=== PATIENT | male | born 1965 | race Caucasian/White ===

== ENCOUNTER 2020-12-30 21:42 | Inpatient (IN) | payer OTHER, MEDICARE, SELFPAY ==
[2020-12-30 22:01] VITALS: BP 145/63; PULSE 99; RESP 18; TEMP 38.2; O2SAT 90; BMI 29.7
--- NOTE | 2020-12-30 22:47 | XRR_ITS ---
PROCEDURE INFORMATION: Exam: XR Chest Exam date and time: 12/30/2020 10:47 PM Age: 55 years old Clinical indication: Shortness of breath and other: Weakness; Additional info: SOB TECHNIQUE: Imaging protocol: XR of the chest. Views: 1 view. COMPARISON: No relevant prior studies available. FINDINGS: Lungs: Patchy infiltrates in both lower lobes. The upper lobes are clear. Pleural spaces: Unremarkable. No pleural effusion. No pneumothorax. Heart/Mediastinum: Unremarkable. No cardiomegaly. Bones/joints: Unremarkable. XR/XR chest 1V portable [id number] IMPRESSION: Bibasilar infiltrates suggesting pneumonia
--- NOTE | 2020-12-30 22:59 | ED_ITS ---
HPI - COVID General: Chief Complaint: COVID symptoms Stated Complaint: COVID+ ON MONDAY LOW O2 Time Seen by Provider: 12/30/20 22:57 Triage information: Has fever, cough or shortness of breath . History of Present Illness: HPI Narrative: Patient brought in by family member for concerns of lethargy and low oxygen level. Patient's family reports that he had a pulse ox from 84% at home. Patient on oxygen runs 90 to 92% at 3 L. P atient remains lethargic. Patient has a history of diabetes mellitus, degenerative disc disease, hypertension, chronic opiate use, and hypertriglyceridemia. Patient tested positive for COVID-19 on Monday at [facility] urgent care in [place]. complaint: known COVID positive Prior covid testing: yes, results known ([facility] on Sunday December 27, 2020.) COVID 19 other sytmptoms: positive requiring oxygen and lethargy Pertinent comorbid conditions: diabetes, hypertension and obesity Treatment prior to arrival: none COVID Results: No Data to Display Review of Systems General: Reports: 10 or more systems reviewed and unremarkable except in HPI and below Neuro: Reports: other (Lethargy) Physical Exam Const: COMMON NORMALS: no acute distress and patient oriented x3 GENERAL APPEARANCE: cooperative HENMT: COMMON NORMALS: normocephalic, TM's normal bilaterally and Normal external nose present HEAD & SCALP: normal to inspection and normocephalic NOSE: Normal external nose present TYMPANIC MEMBRANE: TM's normal bilaterally MOUTH: Normal oral and palatal mucosa present THROAT: posterior oropharynx normal Eye: GENERAL EYE: appearance normal, both eyes and all related structures Neck/C-Spine: COMMON NORMALS: full ROM Lymph: LYMPHATIC: no lymphadenopathy noted Chest: COMMONS NORMALS: normal inspection of the chest Resp: COMMON NORMALS: normal respiratory effort EFFORT & INSPECTION: Yes able to speak in complete sentences AUSCULTATION: crackles Laterality: bilateral and posterior Cardio: COMMON NORMALS: regular rate and regular rhythm RATE: regular rate RHYTHM: regular rhythm GI: COMMON NORMALS: non-tender Back/Pelvis: COMMON NORMALS: thoracic and lumbar spine normal to inspection Extremity: COMMON NORMALS: normal to inspection Neuro: COMMON NORMALS: patient oriented x3 and moves all extremities Psych: COMMON NORMALS: mental status grossly normal and cooperative Skin: COMMON NORMALS: no rashes or lesions noted GENERAL SKIN EXAM: no rashes or lesions noted Course ED course: , discussed with Dr. Marquis patient's elevated creatinine at 6.1, and potassium at 6. Patient is in acute kidney injury, may be due to patient's history of CKD and diabetes secondary to dehydration from fever and COVID-19. 20, patient was mildly hypotensive after infusion of 1000 L patient's blood pressure came up to 110 systolic. We will continue to monitor patient. He seems more alert after the 1 L of fluid. , talk with Dr. Mosley, hospitalist she agreed to admission for SOL and COVID-19 pneumonia. Vital Signs: Vital signs: Vital Signs Temperature 100.7 F H 12/30/20 22:01 Pulse Rate 86 12/31/20 00:52 Respiratory Rate 18 12/31/20 00:52 Blood Pressure 88/50 12/31/20 00:52 Pulse Oximetry 97 12/31/20 00:52 MDM - COVID MDM Narrative: Medical decision making narrative: Patient comes in today for complaints of lethargy and hypoxia at home. It was reported patient had a 84% home oxygen saturation level. Spouse brought into the ER after she got off work due to his declining condition. Patient had been admitted diagnosed with COVID-19 on Monday at [facility] urgent care in [place]. On exam patient has crackles in bilateral lower lung hsieh. Patient at this time on oxygen runs 92 to 94%. Patient skin is warm and dry. Abdomen soft nontender. Differential diagnosis includes COVID-19 pneumonia, hypoxia, respiratory failure. Laboratory values CBC was unremarkable, CMP noted SOL with a creatinine of 6.1 and a potassium of 6. Glucose was 232. I reviewed this with Dr. Marquis who gave the patient some D50 and some insulin and patient was infused 2 L of IV fluids. Patient systolic blood pressure gotten 90 but recovered well after 2 L of IV fluids. I reviewed with Dr. Mosley who agreed to admission. Patient needs treatment for acute kidney injury and Covid pneumonia. He needs IV fluids, oxygen therapy, and antiviral treatment. Lab Data: Labs: Lab Results 12/30/20 12/30/20 12/30/20 Range/Units 23:30 23:30 23:30 WBC 7.9 (4.0-10.0) 10^3/ uL RBC 5.21 (4.1-5.3) 10^6/u L Hgb 13.5 (11.7-16.6) g/dL Hct 43.5 (42.0-52.0) % MCV 83.5 (80-94) fL MCH 25.9 L (28.0-34.0) pg MCHC 31.0 (30.0-36.0) g/dL RDW 13.5 (12.1-15.1) % Plt Count 165 (130-400) 10^3/c mm MPV 11.7 H (7.4-10.4) fL Neut % (Auto) 78.7 % Lymph % (Auto) 11.7 % [place] % (Auto) 9.0 % Eos % (Auto) 0.0 % Baso % (Auto) 0.3 % Neut # (Auto) 6.19 (1.8-7.7) 10^3/u L Lymph # (Auto) 0.9 (0.8-4.8) 10^3/u L [place] # (Auto) 0.7 (0.2-0.9) 10^3/u L Eos # (Auto) 0.0 (0.0-0.8) 10^3/u L Baso # (Auto) 0.0 (0.0-0.1) 10^3/u L Nucleated RBC % (a uto) 0 % Nucleated RBCs # 0.0 /100WBC PT (12.1-14.9) SECO NDS INR (0.8-1.2) APTT (23.9-36.7) SECO NDS Fibrinogen (174-498) mg/dL D-Dimer (0-0.59) ug/mIFE U Specimen Type Sample Site ABG pH (7.35-7.45) ABG pCO2 (35-45) mmHg ABG pO2 (80.0-100.0) mmH g ABG HCO3 (22-26) mmol/L ABG Base Excess (-2.0-2.0) mmol/ L Subhash Test Hematocrit (42-52) % O2 Delivery Device O2 Liters/Min % FiO2 % Chimney Mechanic ID Sodium 130 L (136-145) mmol/L Potassium 6.0 H (3.5-5.1) mmol/L Chloride 92 L (98-107) mmol/L Carbon Dioxide 18 L (22-29) mmol/L Anion Gap 26.0 H (5-19) BUN 52 H (6-20) mg/dL Creatinine 6.1 H* (0.7-1.2) mg/dL GFR Calculation 9.7 L (90-130) mL/min Glucose 232 H (65-115) mg/dL Calculated Osmolal ity 291 (285-295) mOsm/k g Lactic Acid (0.5-2.2) mmol/L Calcium 7.8 L (8.5-10.5) mg/dL Ferritin 243 (30-400) ng/mL Total Bilirubin 0.2 (0.15-1.2) mg/dL AST 21 (0-40) U/L ALT 28 (0-41) U/L Alkaline Phosphata se 75 (40-130) IU/L Creatine Kinase 121 (39-308) U/L Troponin T Gen 5 n g/L 54 H (0-15) ng/L C-Reactive Protein 11.4 H (0.0-4.9) mg/L NT-Pro-B Natriuret Pep 22 (0-125) pg/mL Total Protein 6.5 L (6.6-8.7) g/dL Albumin 4.1 (3.5-5.2) g/dL Globulin 2.4 (1.3-4.6) g/dL Procalcitonin 0.95 H (0-0.5) ng/mL 12/30/20 12/30/20 12/30/20 Range/Units 23:30 23:30 23:51 WBC (4.0-10.0) 10^3/ uL RBC (4.1-5.3) 10^6/u L Hgb (11.7-16.6) g/dL Hct (42.0-52.0) % MCV (80-94) fL MCH (28.0-34.0) pg MCHC (30.0-36.0) g/dL RDW (12.1-15.1) % Plt Count (130-400) 10^3/c mm MPV (7.4-10.4) fL Neut % (Auto) % Lymph % (Auto) % [place] % (Auto) % Eos % (Auto) % Baso % (Auto) % Neut # (Auto) (1.8-7.7) 10^3/u L Lymph # (Auto) (0.8-4.8) 10^3/u L [place] # (Auto) (0.2-0.9) 10^3/u L Eos # (Auto) (0.0-0.8) 10^3/u L Baso # (Auto) (0.0-0.1) 10^3/u L Nucleated RBC % (a uto) % Nucleated RBCs # /100WBC PT 13.60 (12.1-14.9) SECO NDS INR 1.01 (0.8-1.2) APTT 24.6 (23.9-36.7) SECO NDS Fibrinogen 400 (174-498) mg/dL D-Dimer 0.77 H (0-0.59) ug/mIFE U Specimen Type Arterial Sample Site Radial, left ABG pH 7.37 (7.35-7.45) ABG pCO2 30.6 L (35-45) mmHg ABG pO2 59.8 L (80.0-100.0) mmH g ABG HCO3 17.6 L (22-26) mmol/L ABG Base Excess -6.5 L (-2.0-2.0) mmol/ L Subhash Test Pos Hematocrit 41.3 L (42-52) % O2 Delivery Device Nc O2 Liters/Min 3.0 % FiO2 32.0 % Chimney Mechanic ID glc Sodium (136-145) mmol/L Potassium (3.5-5.1) mmol/L Chloride (98-107) mmol/L Carbon Dioxide (22-29) mmol/L Anion Gap (5-19) BUN (6-20) mg/dL Creatinine (0.7-1.2) mg/dL GFR Calculation (90-130) mL/min Glucose (65-115) mg/dL Calculated Osmolal ity (285-295) mOsm/k g Lactic Acid 1.6 (0.5-2.2) mmol/L Calcium (8.5-10.5) mg/dL Ferritin (30-400) ng/mL Total Bilirubin (0.15-1.2) mg/dL AST (0-40) U/L ALT (0-41) U/L Alkaline Phosphata se (40-130) IU/L Creatine Kinase (39-308) U/L Troponin T Gen 5 n g/L (0-15) ng/L C-Reactive Protein (0.0-4.9) mg/L NT-Pro-B Natriuret Pep (0-125) pg/mL Total Protein (6.6-8.7) g/dL Albumin (3.5-5.2) g/dL Globulin (1.3-4.6) g/dL Procalcitonin (0-0.5) ng/mL COVID Results: No Data to Display Discharge Plan Discharge Patient Disposition: Admitted As Inpatient Clinical Impression: SOL (acute kidney injury), Pneumonia due to COVID-19 virus Condition: Stable Coding Level of Care Code 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
[2020-12-30 23:41] LABS: Basophils % 0.3 %; Hematocrit 43.5 % (42.0-52.0); Hemoglobin 13.5 g/dL (11.7-16.6); Lymphocytes # 0.9 10^3/uL (0.8-4.8); Lymphocytes % 11.7 %; Mean Corpuscular Hemoglobin 25.9 pg (28.0-34.0); Mean Corpuscular Volume 83.5 fL (80-94); Mean Platelet Volume 11.7 fL (7.4-10.4); Monocytes # 0.7 10^3/uL (0.2-0.9); Neutrophils # 6.19 10^3/uL (1.8-7.7); Neutrophils % 78.7 %; Nucleated Red Blood Cells % 0 %; Platelet Count 165 10^3/cmm (130-400); Red Blood Count 5.21 10^6/uL (4.1-5.3); Red Cell Distribution Width 13.5 % (12.1-15.1); White Blood Count 7.9 10^3/uL (4.0-10.0)
[2020-12-30] MEDS: sodium chloride 0.9% 1,000 ML 999 ML IV (23:57)
[2020-12-30 23:58] LABS: Lactic Sepsis W/Reflex 1.6 mmol/L (0.5-2.2)
[2020-12-30 23:59] VITALS: BP 93/46; PULSE 85; RESP 18; O2SAT 94
[2020-12-30 23:59] LABS: INR 1.01 (0.8-1.2); Troponin T (5th) Once 54 ng/L (0-15)
[2020-12-31] VITALS (40 sets, daily range): BP systolic 82–148; BP diastolic 50–91; PULSE 80–94; RESP 12–26; TEMP 36.8–37.2; O2SAT 92–98
[2020-12-31] LABS: Partial Thromboplastin Time 24.6 SECONDS (23.9-36.7)
[2020-12-31 00:01] LABS: Fibrinogen 400 mg/dL (174-498)
[2020-12-31 00:03] LABS: ABG PCO2 30.6 mmHg (35-45); ABG PH Result 7.37 (7.35-7.45); Arterial Blood Gas Hematocrit 41.3 % (42-52); Base Excess ABG -6.5 mmol/L (-2.0-2.0); Blood Gas Allen Test Pos; Blood Gas Operator Identificat glc; Blood Gas Sample Site Radial, left; Blood Gas Sample Type Arterial; HCO3 ABG 17.6 mmol/L (22-26); Oxygen Device NC; PO2 ABG 59.8 mmHg (80.0-100.0)
[2020-12-31 00:06] LABS: D Dimer 0.77 ug/mIFEU (0-0.59)
[2020-12-31 00:09] LABS: NT Pro B Type Natriuretic Pept 22 pg/mL (0-125); Procalcitonin 0.95 ng/mL (0-0.5)
[2020-12-31 00:21] LABS: Alanine Aminotransferase 28 U/L (0-41); Albumin Level 4.1 g/dL (3.5-5.2); Alkaline Phosphatase 75 IU/L (40-130); Aspartate Amino Transferase 21 U/L (0-40); Blood Urea Nitrogen 52 mg/dL (6-20); C Reactive Protein 11.4 mg/L (0.0-4.9); Calcium 7.8 mg/dL (8.5-10.5); Carbon Dioxide 18 mmol/L (22-29); Chloride 92 mmol/L (98-107); Creatine Phosphokinase 121 U/L (39-308); Ferritin 243 ng/mL (30-400); Globulin 2.4 g/dL (1.3-4.6); Glomerular Filtration Rate 9.7 mL/min (90-130); Glucose 232 mg/dL (65-115); Osmolality Calculated 291 mOsm/kg (285-295); Sodium 130 mmol/L (136-145); Total Bilirubin 0.2 mg/dL (0.15-1.2); Total Protein 6.5 g/dL (6.6-8.7)
[2020-12-31] MEDS: dextrose 50% syringe 50 mL IVP (00:46)
[2020-12-31] MEDS: insulin regular-human 100 units/1 mL 10 UNIT IVP (00:48)
[2020-12-31] MEDS: sodium chloride 0.9% 1,000 ML 999 ML IV (01:13)
--- NOTE | 2020-12-31 02:12 | P.HP_ITS ---
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 Patient was on anticoagulation with Xarelto until June of this year, discontinued it as he could not afford the co-pay. Thereafter reportedly was told by his vascular surgeon he could be on baby aspirin alone. He was diagnosed with COVID-19 on Monday shortly after his and son came out of COVID-19 quarantine. He was tested at an urgent care and [place]. Symptoms at the time were fever chills and rigors. He also had cough. Denies shortness of breath. Today when his returned from work she noted that he had more tremors than usual in bilateral upper extremities, appeared to be more lethargic, oxygen saturation was down to 84% at room air and therefore she was brought into the emergency room. Work-up here is notable for acute kidney injury with creatinine up to 6.5, hyperkalemia with potassium at 6.0. Lewis was placed and he has had no urine output so far. He is unable to tell me if urine output had been reducing at home. No recent blood in urine. Systolic blood pressure upon admission was 80 systolic, improved with 2 L IV fluids to 110/65 at the time of my assessment. He is currently saturating 92% on 3 L/min nasal cannula. Chest x-ray shows bilateral infiltrates consistent with COVID-19 pneumonitis. Patient received his first dose of COVID-19 vaccine 1 day prior to testing positive for Covid. He denies any current chest pain or palpitations. No known cardiac history. States blood pressure has been controlled at home. He usually takes lisinopril. Does not know his last baseline creatinine. Denies any GI losses by way of vomiting or diarrhea. At this present time patient states his chief complaint is the tremors and also pain in his bilateral lower extremities. He does have peripheral neuropathy and takes gabapentin for the same. Recent history is notable for what appears to be critical limb ischemia per his history, underwent vascular intervention in August 2020 at [facility]. All of the above records have been requested. Review of Systems General: Reports: 10 or more systems reviewed and unremarkable except in HPI and below Const: Reports: fever(s), chills and body aches Eyes: Denies: change in vision, blurry vision or photophobia ENMT: Denies: throat pain, enlarged tonsils, odynophagia or nasal congestion Card: Reports: dyspnea on exertion; Denies: chest pain, palpitations, irregular heart rhythm, edema, swelling of feet/ankles, lightheadedness, pre-syncope or orthopnea Resp: Reports: non-productive cough; Denies: dyspnea, productive cough, wheezing, stridor, pain on inspiration, change in phlegm color, hemoptysis or chest congestion GI: Denies: abdominal pain, nausea, vomiting, hematemesis, coffee ground emesis, dysphagia, heartburn, diarrhea, constipation, GI cramping, change in stool character, hematochezia or melena : Denies: flank pain, dysuria, urinary frequency, urinary urgency, urinary hesitancy or hematuria Musc: Denies: neck pain, back pain, extremity pain, joint swelling, joint warmth or deformity Neuro: Reports: weakness in extremities; Denies: headache(s), numbness in extremities, sensory changes, difficulty walking, frequent falls, dizziness, vertigo, behavioral changes, Slurred speech present or seizure-like activity Psych: Denies: anxiety, depression, suicidal ideation or homicidal ideation Endo: Denies: polyuria, polydipsia, tired all the time, cold intolerance or hot flashes Freedom/Lymph: Denies: easy bruising or easy bleeding Medications/Allergies Allergies Allergy/AdvReac Type Severity Reaction Status Date / Time niacin Allergy Unknown Verified 12/30/20 22:05 Zmlcgjb-Lio-Pus Reductase Allergy Unknown Verified 12/30/20 22:05 Inhibitor PFSH Acute PFSH: Medical History (Updated 12/31/20 @ 04:38 by Laura Mosley MD) Hyperlipidemia Hypertension Peripheral artery disease Renal arterial thrombosis Surgical History (Updated 12/31/20 @ 04:28 by Laura Mosley MD) S/P peripheral artery angioplasty with stent placement Vitals/I&O/Wt Last Vital Signs Temp 100.7 F H 12/30/20 22:01 Pulse 86 07/15/21 00:52 Resp 18 12/31/20 00:52 BP 88/50 12/31/20 00:52 Pulse Ox 97 12/31/20 00:52 Weight last 48 hrs Weight 88.904 kg Physical Exam Narrative: EXAM NARRATIVE: General: Awake alert, awake, alert, oriented x3, initially appeared to be quite somnolent, however continued to participate in conversation. An hour after the initial exam, he was noted to be much more active, using his cell phone without discomfort HEENT: PERRLA, pupils bilaterally equal and reactive, pallors not present Chest: Normal vesicular breath sounds, no added sounds, equal good air entry bilaterally CVS: S1-S2 regular, no murmurs, no tachycardia, no gallops, no rubs Abdomen: Soft, nontender, no organomegaly, bowel sounds present Neuro: No focal deficits, no facial deformity, AO x3, power 5/5 in all limbs Extremities: Left lower extremity peripheral pulses palpable up to dorsalis pedis. No gross difference in temperature both extremities. Multiple superficial scratches seen over lower extremities. Data : 12/30/20 23:30 12/31/20 02:24 A&P Assessment and plan (1) Pneumonia due to COVID-19 virus: Chest x-ray with bilateral infiltrates consistent with COVID-19 pneumonia Start dexamethasone IV every 24 hours Per review of NIH guidelines, Remdesivir is not recommended for patients with an eGFR <30 mL/min due to lack of data, therefore holding off for now. 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 He was supposed to be on Xarelto thereafter which she discontinued in June due to affordability issues. Unable to get a contrast CT scan at this time, ordered renal arterial Doppler to evaluate for thrombosis. Start heparin drip presumptively in the interim, may be discontinued if no evidence of thrombosis noted. D-dimer is mildly elevated at 0.77. Continue aspirin 81 mg p.o. daily Concerning findings at this present time or hyperkalemia and tremors which may potentially be a result of uremia. Also with some acidosis. Renal consult in the a.m. Status: Acute (3) Insulin dependent diabetes mellitus: At home takes Lantus 35 units and sliding scale insulin. Hold Lantus for now given SOL. Continue medium dose sliding scale insulin. Status: Acute (4) Hypertension: hold home dose of lisinopril Presented with hypotension, received 2 L IV fluid, blood pressure currently stable at 110/65 Status: Acute Qualifiers: Hypertension type: essential hypertension Qualified Code(s): I10 - Essential (primary) hypertension (5) Peripheral artery disease: History of peripheral artery disease, per his description it appears he may have had critical limb ischemia in August of this year and underwent peripheral intervention at [facility]. Records requested Complains of bilateral lower extremity pain which may be related to his known peripheral neuropathy, however states that pain feels similar to his critical limb ischemia. I am able to feel pulses up to the dorsalis pedis on the left side only at this time. Check lower extremity arterial Doppler. He is uncertain if he is ever had a hypercoagulability work-up. Status: Acute (6) Hyperlipidemia: Takes ezetimibe at home, continue same for now. Status: Acute Qualifiers: Hyperlipidemia type: unspecified Qualified Code(s): E78.5 - Hyperlipidemia, unspecified (7) Hyperkalemia: Improved to 5.0 from 6.0 after being given insulin dextrose No acute ST-T changes on EKG at this time. Status: Acute Additional A&P Information Elevated troponins, trend at 2 and 6-hour. Denies any current chest pain. DVT prophylaxis: Currently on heparin drip Full code. 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
[2020-12-31 02:51] LABS: Blood Urea Nitrogen 52 mg/dL (6-20); Carbon Dioxide 16 mmol/L (22-29); Chloride 99 mmol/L (98-107); Glucose 252 mg/dL (65-115); Osmolality Calculated 293 mOsm/kg (285-295); Sodium 130 mmol/L (136-145)
[2020-12-31 02:51] LABS: C Reactive Protein 12.4 mg/L (0.0-4.9); Lactate Dehydrogenase 166 U/L (135-225)
[2020-12-31 03:05] LABS: Troponin T (5th) Once 42 ng/L (0-15)
[2020-12-31 03:11] LABS: Ferritin 196 ng/mL (30-400)
[2020-12-31] MEDS: dexamethasone 4 mg/mL INJ 6 MG IVP (03:18)
[2020-12-31] MEDS: cefTRIAXone 1,000 MG in sodium chloride 0.9% (plus) 100 ML 200 MG IV (03:24)
[2020-12-31] MEDS: enoxaparin 40 mg/0.4 mL Syringe SUBCUT (03:25)
[2020-12-31 03:31] LABS: D Dimer 0.51 ug/mIFEU (0-0.59)
[2020-12-31] MEDS: sodium chloride 0.9% 1,000 ML 100 ML IV ×3 (03:48→21:48)
--- NOTE | 2020-12-31 04:15 | CTR_ITS ---
PROCEDURE INFORMATION: Exam: CT Abdomen And Pelvis Without Contrast Exam date and time: 12/31/2020 4:15 AM Age: 55 years old Clinical indication: Abdominal tenderness; Additional info: Rd CR 6, evaluate for obstruction, h/o ? renal artery thrombosis one year ago, unable to use^contrast currently TECHNIQUE: Imaging protocol: Computed tomography of the abdomen and pelvis without contrast. Radiation optimization: All CT scans at this facility use at least one of these dose optimization techniques: automated exposure control; mA and/or kV adjustment per patient size (includes targeted exams where dose is matched to clinical indication); or iterative reconstruction. COMPARISON: US abdomen limited [id number] 06/16/2016 10:43 AM RADIATION DOSE METRICS: Total DLP (mGy-cm): 1601.75 FINDINGS: Lungs: Bibasilar mild pulmonary subsegmental atelectasis is present. Peripheral rounded pulmonary ground-glass opacities with intralobular interstitial densities. Liver: Mild diffuse hypoattenuation of the liver is present consistent with hepatic steatosis. Gallbladder and bile ducts: The gallbladder is partially contracted. Pancreas: Moderate pancreatic atrophy. Spleen: Normal. No splenomegaly. Adrenal glands: Normal. No mass. Kidneys and ureters: Symmetric, normal bilateral renal size despite the clinical history. Stomach and bowel: There is mildly increased fluid noted in the ascending and proximal transverse colon. Appendix: The vermiform appendix is normal. Intraperitoneal space: No free air. No significant fluid collection. Vasculature: Infrarenal abdominal aortic stent, no aneurysm. Calcified phleboliths are present in the lower pelvis bilaterally. The right iliac arteries show mild atherosclerotic calcifications without evidence of aneurysm. Atherosclerotic calcifications are present involving the RCA coronary artery. Lymph nodes: No enlarged lymph nodes. Urinary bladder: The urinary bladder is drained by a Lewis catheter. The urinary bladder is decompressed and difficult to assess. Moderate urinary bladder wall thickening. Reproductive: Unremarkable as visualized. Bones/joints: Unremarkable. No acute fracture. Soft tissues: Right inguinal surgical clips. CT/CT kidney stone [id number] IMPRESSION: 1. Increased right abdominal colonic fluid consistent with any diarrheal illness, if present. Clinical correlation is recommended. 2. Moderate urinary bladder wall thickening. Cystitis not excluded. Clinical correlation with urinalysis is recommended. 3. Fatty infiltration of the liver. 4. Peripheral rounded pulmonary ground-glass opacities with intralobular interstitial densities. Pneumonitis, including viral pneumonitis, is difficult to exclude. Clinical correlation is recommended. 5. Coronary atherosclerosis. Radiation Dose CTDIVOL = (mGy): DLP = 1601.75 (mGy-cm)
[2020-12-31 04:20] LABS: Amorphous Sediment Urine 2+ /hpf; Bacteria Urine TRACE /hpf; Bilirubin Urine 1+ (Negative); Blood Urine Neg (Negative); Glucose Urine UA Norm (Normal); Ketones Urine Negative (Negative); Leukocyte Esterase Urine Negative (Negative); Nitrate Urine Negative (Negative); Protein Urine Trace (Negative); RBC Urine 0-4 /hpf (0-2); Squamous Epithelial Cell Urine 0-4 /hpf (0-5); Urine Appearance Clear (CLEAR); Urine Color Yellow (Yellow); Urobilinogen Urine Norm (Negative); WBC Urine 0-4 /hpf (0-5); pH Urine 5 (5-7)
[2020-12-31 04:21] LABS: Hyaline Casts Urine 0-4 /lpf
[2020-12-31 04:23] LABS: Potassium, Radom Urine 32 mmol/L; Urine Creatinine 376 mg/dL (39-259); Urine Random Sodium 21 mmol/L
[2020-12-31 04:24] LABS: Urine Random Chloride 16 mmol/L
[2020-12-31] MEDS: heparin 5,000 unit/mL INJ 1 mL IV (04:50)
[2020-12-31] MEDS: heparin drip 25,000 UNIT/500 ML PREMIX 25 UNIT IV (04:50)
--- NOTE | 2020-12-31 04:53 | PC.NURSE ---
Addendum entered by Maryjane Eugene RN 12/31/20 04:58: Discard. Entered in error. Original Note: Attempt to contact Dr. Mosley to clarify NS rate on orders. Awaiting response.
[2020-12-31 05:12] LABS: HIV 1 & 2 Antibody Non-Reactive (Non-Reactiv); HIV 1 & 2 Antigen Non-Reactive (Non-Reactiv)
[2020-12-31 05:29] LABS: Hepatitis A Antibody IgM Non-Reactive (Nonreactive); Hepatitis B Core AB, Total Non-Reactive (Nonreactive); Hepatitis B Surface AB 3.5 (11.5-1000); Hepatitis B Surface Antigen Non-Reactive (Nonreactive); Hepatitis C Virus Antibody Non-Reactive (Nonreactive)
[2020-12-31 07:27] LABS: Glucose Point of Care 231 mg/dL (70-110)
[2020-12-31] MEDS: ezetimibe 10 mg Tablet PO (08:09)
[2020-12-31] MEDS: benzonatate 100 mg Capsule PO ×3 (08:11→21:47)
[2020-12-31] MEDS: famotidine 20 mg Tablet PO ×2 (08:11→17:35)
[2020-12-31] MEDS: aspirin 81 mg EC Tablet PO (08:11)
[2020-12-31] MEDS: albuterol 8 gm MDI 2 PUFF INHALATION ×5 (09:41→23:12)
--- NOTE | 2020-12-31 09:52 | PM.CONSULT ---
Providers/Reason For Consult Consulting Physician/Specialty*: Samantha Lee DO, telenephrology Reason for Consult*: Acute kidney injury Attending Physician: Mahamed Ruiz MD Primary Care Provider: TARA Feliz History of Present Illness History of Present Illness Navneet Meneses is a 55 year old male started to feel ill over weekend. Reports balance difficulty, extreme weakness, diffuse aches and pains. Admitted with COVID associated pneumonia. We do not have a current medication list and he was unable to provide one. RN is calling [place] for list. Presently feeling a little better. Review of Systems Resp: Reports: non-productive cough Musc: Reports: muscle cramps and muscle weakness Skin/Breast: Denies: rash Meds/Allergies Home Medications and Allergies Allergies Allergy/AdvReac Type Severity Reaction Status Date / Time niacin Allergy Unknown Verified 12/30/20 22:05 Ystpuzb-Mbb-Drp Reductase Allergy Unknown Verified 12/30/20 22:05 Inhibitor Current Medications Current Medications Generic Name Dose Route Start Last Admin Trade Name Freq PRN Reason Stop Dose Admin Albuterol Sulfate 2 puff 12/31/20 08:00 12/31/20 09:41 Albuterol 8 Gm Mdi INHALATION 2 puff Q4H.RESPIRATORY DAYSI Administration Aspirin 81 mg 12/31/20 09:00 12/31/20 08:11 Aspirin 81 Mg Ec Tablet PO 81 mg DAILY DAYSI Administration Benzonatate 100 mg 12/31/20 09:00 12/31/20 08:11 Benzonatate 100 Mg Capsule PO 100 mg TID DAYSI Administration Dexamethasone 6 mg 12/31/20 02:15 12/31/20 03:18 Dexamethasone 4 Mg/Ml Inj IVP 6 mg Q24H DAYSI Administration Ezetimibe 10 mg 12/31/20 09:00 12/31/20 08:09 Ezetimibe 10 Mg Tablet PO 10 mg DAILY DAYSI Administration Enoxaparin Sodium 40 mg 12/31/20 02:15 12/31/20 03:25 Enoxaparin 40 Mg/0.4 Ml Syringe SUBCUT 40 mg Q24H DAYSI Administration Famotidine 20 mg 12/31/20 09:00 12/31/20 08:11 Famotidine 20 Mg Tablet PO 20 mg BID DAYSI Administration Heparin Sodium (Beef Lung) 0 unit 12/31/20 04:15 12/31/20 04:50 Heparin 5,000 Unit/Ml Inj 1 Ml IV 4,500 unit PRN PRN Administration Heparin weight-base protocol Protocol Sodium Chloride 1,000 mls @ 100 mls/hr 12/31/20 02:00 12/31/20 03:48 Sodium Chloride 0.9% IV 100 mls/hr .Q10H DAYSI Administration Ceftriaxone Sodium 1,000 mg/ 100 mls @ 200 mls/hr 12/31/20 02:15 12/31/20 03:24 Sodium Chloride IV 200 mls/hr Q24H DAYSI Administration Protocol Heparin Sodium/Sodium Chloride 25,000 unit in 500 mls @ 0 mls/hr 12/31/20 04:15 12/31/20 04:50 Heparin Drip IV 14.06 unit/kg/hr .Q0M DAYSI 25 mls/hr Administration Protocol Per Protocol Insulin Aspart 0 unit 12/31/20 08:00 12/31/20 08:08 Insulin Aspart 100 Unit/1 Ml SUBCUT 8 unit WM&BEDTIME DAYSI Administration Protocol Fluticasone/Salmeterol 1 puff 12/31/20 08:00 12/31/20 09:41 Fluticasone-Salmeterol 250-50 Diskus INHALATION 1 puff BID.RESPIRATORY DAYSI Administration Tiotropium Astor 18 mcg 12/31/20 08:00 12/31/20 09:42 Tiotropium 18 Mcg Mdi INHALATION 1 puff DAILY.RESPIRATORY DAYSI Administration PFSH Acute PFSH: Medical History Hyperlipidemia Hypertension Peripheral artery disease Renal arterial thrombosis Surgical History S/P peripheral artery angioplasty with stent placement Vitals/I&O/Wt Last Vital Signs Temp 98.2 F 12/31/20 08:00 Pulse 89 12/31/20 09:39 Resp 18 12/31/20 09:30 BP 120/69 12/31/20 08:00 Pulse Ox 97 12/31/20 09:30 12/30/20 12/31/20 12/31/20 22:59 06:59 14:59 Intake Total 60 / 60 360 / 360 Balance 60 / 60 360 / 360 Weight last 48 hrs Weight 88.904 kg Physical Exam Const: COMMON NORMALS: no acute distress GENERAL APPEARANCE: cooperative Extremity: COMMON NORMALS: no pedal edema Urinary Catheter Management^: Lewis: Cath Placed During This Visit: yes Reason for Continuing Indwelling Catheter: Other Urinary Catheter Date of Insertion: 12/31/20 Data Labs: Other Labs: urine Na 21, urine Cr 376 Urinalysis normal except 1+ bilirubin Hep/HIV neg LFT normal, albumin 4.1, calcium 7 CK 121 Repeat BMP: K 5.4, BS 418, Na delphine 131 Micro: Micro: Microbiology 12/31/20 02:26 Blood Culture - Pr eliminary Blood [facility]EN [facility] 12/31/20 02:24 Blood Culture - Pr eliminary Blood SPECIMEN [facility] Imaging^: CT Abd/Pel: Radiologist's impression: 1. Increased right abdominal colonic fluid consistent with any diarrheal illness, if present. Clinical correlation is recommended. 2. Moderate urinary bladder wall thickening. Cystitis not excluded. Clinical correlation with urinalysis is recommended. 3. Fatty infiltration of the liver. 4. Peripheral rounded pulmonary ground-glass opacities with intralobular interstitial densities. Pneumonitis, including viral pneumonitis, is difficult to exclude. Clinical correlation is recommended. 5. Coronary atherosclerosis. ABG^: ABG Interpretation 1: 7.37/30.6/59.8 My Interpretation: primary metabolic acidosis A&P Additional A&P Information 1. Acute oliguric kidney injury, FeNa < 1%, consistent with prerenal state. 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 Records requested from [facility]. Continue IVF hydration. 2. COVID pneumonia. Case reports document remdesivir benefit outweighs risk in patients with low eGFR and severe COVID 3. Hyponatremia 4. Metabolic acidosis 5. Hyperkalemia, improved. Now hyperglycemic. Plan to start insulin gtt. Consult Attestations Medical Necessity Statement: critically ill Time Spent in Patient Care: Greater than 35 minutes Coding Level of Care Code Acute Insulation Batting Machine Operator for Maribel Bruner
[2020-12-31 11:03] LABS: Glucose Point of Care 406 mg/dL (70-110)
[2020-12-31 12:25] LABS: Anion Gap 20.4 (5-19); Blood Urea Nitrogen 55 mg/dL (6-20); Calcium 7.1 mg/dL (8.5-10.5); Carbon Dioxide 15 mmol/L (22-29); Chloride 98 mmol/L (98-107); Glomerular Filtration Rate 11.4 mL/min (90-130); Glucose 418 mg/dL (65-115); Osmolality Calculated 299 mOsm/kg (285-295); Partial Thromboplastin Time 124.4 SECONDS (23.9-36.7); Potassium 5.4 mmol/L (3.5-5.1); Sodium 128 mmol/L (136-145)
[2020-12-31 13:08] LABS: Glucose Point of Care 389 mg/dL (70-110)
[2020-12-31] MEDS: zinc gluconate 50 mg Tablet PO (13:12)
[2020-12-31] MEDS: ascorbic acid 500 mg Tablet PO (13:12)
[2020-12-31 13:55] LABS: INR 1.05 (0.8-1.2)
[2020-12-31 13:56] LABS: Fibrinogen 368 mg/dL (174-498)
[2020-12-31 13:58] LABS: D Dimer 0.58 ug/mIFEU (0-0.59)
--- NOTE | 2020-12-31 14:08 | PC.PHAR ---
Addendum entered by Vandana Eugene 12/31/20 14:19: pt also states he got a neva and [employer] covid vaccine on 12/25/20 Addendum entered by Vandana Eugene 12/31/20 14:16: they have the novolog flexpen as dced on 12/25/20-pt states he takes 300mg of trazodone at bedtime-[facility]- Original Note: pt states he takes care of his own medications-pt states whats on his va med list is what he takes-famotidine 20mg hs is on pts va med list but pt states it doesnt work so he doesnt take-pt states he takes flexeril but that medication is not on the pts va med list-pt states he uses a novolog flexpen ss three to four times a day-per andrey with [facility] [phone] ext [phone] states alyson
[2020-12-31 14:24] LABS: NT Pro B Type Natriuretic Pept 175 pg/mL (0-125); Thyroid Stimulating Hormone 0.68 uIU/mL (0.27-4.20)
--- NOTE | 2020-12-31 14:32 | P.PN_ITS ---
Subjective Subjective: Interval history: Admitted overnight. H&P and labs appreciated. Examination patient lying in bed. Awake and alert. Denies any nausea, vomiting, headache. Complaining of pain in left flank, Lewis catheter in place with clear zeferino-colored urine draining, on a heparin drip and fluids running at 150 cc/h. Denies any nausea, vomiting, headache. Complaining of dizziness. Denies any shortness of breath. Currently on room air saturating 94%. On examination medical reconciliation done. Medications: Reviewed: Yes Medication Review Details: States he takes [place] 10/325 twice daily Levothyroxine 75 mcg daily Lisinopril, Metformin twice a day, omeprazole, Lantus 35 units at bedtime along with NovoLog. Also states he takes a baby aspirin. Also states he was asked not to take Xarelto anymore by his primary interventionalists as he could not afford it anymore. Also states he has been not been taking his NovoLog currently as he could not afford it. Vitals/I&O/Wt Last Vital Signs Temp 98.2 F 12/31/20 08:00 Pulse 92 12/31/20 14:00 Resp 20 H 12/31/20 12:55 BP 120/69 12/31/20 08:00 Pulse Ox 94 12/31/20 12:55 12/30/20 12/31/20 12/31/20 22:59 06:59 14:59 Intake Total 60 / 60 1301.667 / 1301.667 Output Total 650 / 650 Balance 60 / 60 651.667 / 651.667 Weight last 48 hrs Weight 88.904 kg Physical Exam Narrative: EXAM NARRATIVE: General: Awake alert, awake, alert, oriented x3, no acute distress HEENT: PERRLA, pupils bilaterally equal and reactive, pallors not present Chest: Normal vesicular breath sounds, occasional rhonchi present all over lung hsieh, equal good air entry bilaterally CVS: S1-S2 regular, no murmurs, no tachycardia, no gallops, no rubs Abdomen: Soft, nontender, no organomegaly, bowel sounds present, obese Neuro: No focal deficits, no facial deformity, AO x3, power 5/5 in all limbs Extremities: Left lower extremity peripheral pulses palpable up to dorsalis pedis. No gross difference in temperature both extremities. Multiple superficial scratches seen over lower extremities. Urinary Catheter Management^: Lewis: Cath Placed During This Visit: yes Reason for Continuing Indwelling Catheter: Other Urinary Catheter Date of Insertion: 12/31/20 Data : 12/30/20 23:30 12/31/20 11:45 Micro: Microbiology 12/31/20 02:26 Blood Culture - Preliminary Blood SPECIMEN COLLECTED 12/31/20 02:24 Blood Culture - Preliminary Blood SPECIMEN COLLECTED A&P Assessment and plan (1) Pneumonia due to COVID-19 virus: Chest x-ray with bilateral infiltrates consistent with COVID-19 pneumonia Dexamethasone 6 mg IV daily. Advair, Spiriva. Incentive spirometry, flutter valve. Zinc, and vitamin C. Vitamin C 500 mg daily as per creatinine clearance. Continue to monitor inflammatory markers including CRP, LDH, ESR, ferritin. Case discussed with weaving professor. Who recommends if needed can give remdesivir 200 mg first dose followed by 100 mg for 5 doses. As patient currently is on room air and potential risk out with the benefits because of ongoing severe SOL we will hold off. If patient using oxygen supplementation at that point we will plan to start. Inflammatory markers for now within normal limits. Hold off on Actemra. CTA could not be done because of SOL. Patient is already on a heparin drip for a possible renal artery stenosis. Low suspicion of bacterial infection. Check urine Legionella, bacterial a ntigen, sputum culture. For now continue with ceftriaxone 1 g daily. Status: Acute (2) SOL (acute kidney injury): Fena- 0.3%. Consistent with prerenal. Cannot rule out secondary to renal artery stenosis. CT abdomen pelvis negative for hydronephrosis/obstructive nephropathy or medical renal disease. Abdominal renal ultrasound with Doppler awaited. Monitor BMP every 12 hours for now. Will monitor for hyperkalemia. Normal saline at 100 cc/h. Will decrease the rate to avoid fluid overload given COVID-19 pneumonia and ongoing SOL. Strict input output charting. Daily weight. Continue with heparin drip. Patient has a history of what looks like renal artery thrombosis, s/p stenting at [facility] by vascular surgery. Currently on baby aspirin. As per patient he was on Xarelto till June but was stopped as he could not afford the medication. Continue with aspirin 81 mg daily for now. Status: Acute (3) Insulin dependent diabetes mellitus: Blood sugars elevated. Patient is also on Decadron. Start patient on insulin drip. Target blood sugar around 200. Status: Acute (4) High anion gap metabolic acidosis: Likely secondary to hyperglycemia and acute kidney injury. Start patient on insulin drip as above. Monitor BMP every 12 hourly. Status: Acute (5) Hypertension: Goal blood pressure less than 140/90 mmHg. Blood pressure better but soft. Hold off on lisinopril which is his home medication because of ongoing SOL. Continue to monitor. Status: Acute Qualifiers: Hypertension type: essential hypertension Qualified Code(s): I10 - Essential (primary) hypertension (6) Peripheral artery disease: Continue with aspirin, fenofibrate, ezetemibe. Check peripheral pulses every 12 hourly. History of peripheral artery disease, per his description it appears he may have had critical limb ischemia in August of this year and underwent peripheral interv ention at [facility]. Records requested Complains of bilateral lower extremity pain which may be related to his known peripheral neuropathy, however states that pain feels similar to his critical limb ischemia. I am able to feel pulses up to the dorsalis pedis on the left side only at this time. Check lower extremity arterial Doppler. He is uncertain if he is ever had a hypercoagulability work-up. Status: Acute (7) Hyperlipidemia: Takes ezetimibe at home, continue same for now. Status: Acute Qualifiers: Hyperlipidemia type: unspecified Qualified Code(s): E78.5 - Hyperlipidemia, unspecified (8) Hyperkalemia: Improved to 5.0 from 6.0 after being given insulin dextrose No acute ST-T changes on EKG at this time. Status: Acute Additional A&P Information Continue other chronic medications including hydrocodone, fenofibrate, azithromycin, aspirin, levothyroxine. Protonix for PUD prophylaxis. DVT prophylaxis: Currently on heparin drip Full code. Renal carb consistent diet. Transfer to ICU for insulin drip. Attestations Medical Necessity Statement*: Patient requires further hospitalization for management of COVID-19 pneumonia, severe SOL, severe hyperglycemia, high anion gap metabolic acidosis Critical Care Time: ,The high probability of a clinically significant, sudden or life threatening deterioration of the patient's [renal cardiovascular, pulmonary, endocrine] system(s) required my full and direct attention, intervention and personal management. The critical care time is as shown. This time is in addition to time spent performing any reported procedures but includes the following: [x] Data and vital sign review and interpretation [x] Patient assessment, examination and intervention [x] Documentation [x] Medication orders and management Critical Care Time (min): 80 Coding Level of Care Code Acute Money Position Officer for [facility] Fwd Diagnoses Pneumonia due to COVID-19 virus U07.1; J12.82 SOL (acute kidney injury) N17.9 Insulin dependent diabetes mellitus High anion gap metabolic acidosis E87.2 Hypertension I10 Hypertension type: essential hypertension Peripheral artery disease I73.9 Hyperlipidemia E78.5 Hyperlipidemia type: unspecified Hyperkalemia E87.5
[2020-12-31 14:35] LABS: C Reactive Protein 21.9 mg/L (0.0-4.9); Ferritin 232 ng/mL (30-400); Iron 19 ug/dL (59-158); Lactate Dehydrogenase 207 U/L (135-225); Percent Saturation 7.5 % (20-50); Total Iron Binding Capacity 253 mcg/dl; Unsaturated Iron Binding 234 ug/dL (112-347)
[2020-12-31 14:38] LABS: Creatine Phosphokinase 469 U/L (39-308)
[2020-12-31 14:58] LABS: Glucose Point of Care 415 mg/dL (70-110)
[2020-12-31 15:31] LABS: Glucose Point of Care 386 mg/dL (70-110)
[2020-12-31 15:46] LABS: ABG PCO2 30.9 mmHg (35-45); ABG PH Result 7.34 (7.35-7.45); Blood Gas Allen Test Pos; Blood Gas Sample Type Arterial; HCO3 ABG 16.7 mmol/L (22-26); PO2 ABG 76.4 mmHg (80.0-100.0)
[2020-12-31] MEDS: gabapentin 100 mg Capsule 200 MG PO ×2 (16:03→21:47)
[2020-12-31 16:07] LABS: Ketone (Acetest) Serum Negative (Negative)
[2020-12-31 16:38] LABS: Glucose Point of Care 382 mg/dL (70-110)
[2020-12-31] MEDS: HYDROcodone-acetaminophen 10-325 mg Tablet 1 TAB PO (17:35)
--- NOTE | 2020-12-31 18:04 | PC.NURSE ---
Pt has had an uneventful day for the most part. Pt has no complaints, VS have been stable, patient has been on room air, oxygen saturation has remained WNL. Blood sugars have been elevated reaching as high as 409. Physician is aware and pt is awaiting transfer to the ICU.
--- NOTE | 2020-12-31 18:28 | PC.NURSE ---
Report called to KASHIF Reynaga in ICU.
--- NOTE | 2020-12-31 18:55 | PC.NURSE ---
insulin sliding scale d/c per physician orders due to insulin gtt. Pt has been transferred to the ICU.
[2020-12-31 20:04] LABS: Anion Gap 18.9 (5-19); Blood Urea Nitrogen 52 mg/dL (6-20); Calcium 7.4 mg/dL (8.5-10.5); Carbon Dioxide 16 mmol/L (22-29); Chloride 101 mmol/L (98-107); Glomerular Filtration Rate 13.1 mL/min (90-130); Glucose 302 mg/dL (65-115); Osmolality Calculated 297 mOsm/kg (285-295); Potassium 4.9 mmol/L (3.5-5.1); Sodium 131 mmol/L (136-145)
[2020-12-31 20:16] LABS: Partial Thromboplastin Time 104.9 SECONDS (23.9-36.7)
[2020-12-31] MEDS: trazodone 150 mg Tablet 300 MG PO (21:47)
--- NOTE | 2020-12-31 21:56 | PC.NURSE ---
received insulin gtt from pharmacy. BSG at this time is 236. Received orders from hospitalist to hold insulin gtt for now and continue to monitor
[2020-12-31 21:59] LABS: Glucose Point of Care 236 mg/dL (70-110)
[2021-01-01] VITALS (102 sets, daily range): BP systolic 105–156; BP diastolic 67–88; PULSE 80–117; RESP 11–34; TEMP 36.9–38.6; O2SAT 89–96
[2021-01-01] MEDS: cefTRIAXone 1,000 MG in sodium chloride 0.9% (plus) 100 ML 200 MG IV (01:46)
[2021-01-01] MEDS: dexamethasone 4 mg/mL INJ 6 MG IVP (01:46)
[2021-01-01] MEDS: acetaminophen 325 mg Tablet 650 MG PO ×2 (01:58→23:31)
[2021-01-01] MEDS: albuterol 8 gm MDI 2 PUFF INHALATION ×5 (03:14→20:16)
[2021-01-01 03:19] LABS: Partial Thromboplastin Time 73.1 SECONDS (23.9-36.7)
[2021-01-01 03:29] LABS: Basophils % 0.2 %; Hematocrit 34.8 % (42.0-52.0); Lymphocytes # 1.6 10^3/uL (0.8-4.8); Lymphocytes % 27.8 %; Mean Corpuscular HGB Conc 31.6 g/dL (30.0-36.0); Mean Corpuscular Hemoglobin 26.2 pg (28.0-34.0); Mean Corpuscular Volume 82.9 fL (80-94); Mean Platelet Volume 12.5 fL (7.4-10.4); Monocytes # 0.4 10^3/uL (0.2-0.9); Monocytes % 6.6 %; Neutrophils # 3.63 10^3/uL (1.8-7.7); Nucleated Red Blood Cells % 0 %; Platelet Count 144 10^3/cmm (130-400); Red Cell Distribution Width 13.5 % (12.1-15.1); White Blood Count 5.6 10^3/uL (4.0-10.0)
[2021-01-01 03:30] LABS: Alanine Aminotransferase 18 U/L (0-41); Albumin Level 3.5 g/dL (3.5-5.2); Alkaline Phosphatase 62 IU/L (40-130); Anion Gap 17.5 (5-19); Aspartate Amino Transferase 18 U/L (0-40); Blood Urea Nitrogen 45 mg/dL (6-20); C Reactive Protein 13.7 mg/L (0.0-4.9); Calcium 7.7 mg/dL (8.5-10.5); Carbon Dioxide 19 mmol/L (22-29); Chloride 105 mmol/L (98-107); Chol HDL Ratio 6.43 mg/dL (1.0-5.00); Cholesterol 148 mg/dL (0-200); Globulin 2.2 g/dL (1.3-4.6); Glomerular Filtration Rate 16.7 mL/min (90-130); Glucose 207 mg/dL (65-115); HDL Cholesterol 23 mg/dL (60-100); LDL Cholesterol Calculated 74 mg/dL (50-129); Magnesium 1.3 mg/dL (1.7-2.3); NT Pro B Type Natriuretic Pept 559 pg/mL (0-125); Osmolality Calculated 302 mOsm/kg (285-295); Potassium 4.5 mmol/L (3.5-5.1); Sodium 137 mmol/L (136-145); Total Bilirubin 0.2 mg/dL (0.15-1.2); Total Protein 5.7 g/dL (6.6-8.7); Triglycerides 256 mg/dL (0-150); VLDL Cholestrol Calculation 51 mg/dL (0-30)
[2021-01-01 03:46] LABS: Ferritin 238 ng/mL (30-400)
[2021-01-01 04:02] LABS: Slide Review Slide Review Perform
--- NOTE | 2021-01-01 05:47 | PC.NURSE ---
SHIFT SUMMARY: Patient arrived to ICU bed 4 at shift change last night. patient placed in covid ISO. O2 remains stable on RA this shift. BP and HR within normal limits. remains afebrile. Complaints of mild discomfort during the shift that was relieved by tylenol. Heparin Gtt remains on. PTT in normal range, next PTT is due at 0945 (order has been placed). NS remains running at 100 mL/hr. Patient has remained NPO as of midnight for ultrasound. Tech is performing ultrasound at this time, will resume with diet once procedure is complete.
--- NOTE | 2021-01-01 06:00 | USCV_ITS ---
Zaira, Navneet Age: 55 Gender: M : 1965 Exam Date: 01/01/2021 05:33 Ordering Phys: Laura Mosley MD Technologist: NAUN Mercedes [place] [facility] [place]ication: HISTORY OF THROMBUS OF RENAL Aortic Velocity @ SMA (cm/s) 56.7 RIGHT KIDNEY LEFT KIDNEY Velocity (cm/s) Velocity (cm/s) Sys/Vera Sys/Vera Resistive Index Resistive Index 90.3 / 27.6 0.69 Proximal Renal Artery 62.8 / 19.4 0.69 46.5 / 20.5 0.56 Mid Renal Artery 70.4 / 22.2 0.68 52.6 / 15.5 0.71 Distal Renal Artery 68.5 / 24.6 0.64 55.4 / 22.7 0.59 Hilar 53.9 / 18.0 0.67 26.8 / 10.1 0.62 Upper Pole 61.1 / 20.5 0.66 47.8 / 14.6 0.69 Mid Pole 63.5 / 21.0 0.67 78.4 / 24.6 0.69 Lower Pole 39.6 / 13.4 0.66 1.60 Renal Aortic Ratio 1.24 Accleration Index (cm/sec2) 1324.0 Hilar 1482.0 0 0 710.00 Upper Pole 1704.0 0 1100.0 Mid Pole 1445.0 0 0 1685.0 Lower Pole 844.00 0 124.5 Kidney Length (mm) 117.2 FINDINGS Normal kidney dimensions bilaterally. Normal renal arterial Doppler flow velocities. Normal Doppler velocity ratios and indicis. CONCLUSIONS #1. No evidence of any significant renal artery stenosis, based on the above findings. #2. Normal kidney dimensions Dr Meghana Lin MD [facility] (Electronically Signed) Final Date: 01 January 2021 10:47 S
--- NOTE | 2021-01-01 06:00 | XR_ITS ---
WS: [id number] Portable AP upright chest, 01/01/2021 Clinical Data: covid Comparison: Portable chest, 12/30/2020. Findings: No nodules, masses or effusions are seen. The heart is normal. The pulmonary vascularity is not increased. No pneumothorax is seen. The patchy opacities in the lower lobes have almost totally resolved. Monitor leads are on the chest wall. XR/XR chest 1V portable [id number] Impression: Improvement in patchy opacities in both lower lobes.
[2021-01-01] MEDS: heparin drip 25,000 UNIT/500 ML PREMIX 15 UNIT IV (06:13)
--- NOTE | 2021-01-01 07:00 | USCV_ITS ---
Navneet Meneses Age: 55 Gender: M : 1965 Exam Date: 01/01/2021 05:58 Ordering Phys: Laura Mosley MD Technologist: Sari Walden [place] [facility] [place]: HISTORY OF A STENT Risk Factors: DM Previous Vascular Surgery: Unknown RIGHT LEFT BP: 110.0 / 67.00 BP: / 0 Waveform Velocity (cm/s) Velocity (cm/s) Waveform Triphasic 87.8 Iliac Prox 98.5 Triphasic Triphasic 68.1 Iliac Mid 69.6 Triphasic Triphasic 76.0 Iliac Distal 85.6 Triphasic Triphasic 70.6 ENGINEER TECHNICAL STAFF 83.5 Triphasic Triphasic 103.8 SFA Prox 73.9 Triphasic Triphasic 61.0 SFA Mid 72.8 Triphasic Triphasic 46.0 SFA Dist 91.0 Triphasic Triphasic 57.3 POP 93.1 Triphasic Monophasic 43.0 BONE TENDER 83.5 Monophasic N/A DPA 70.6 Monophasic GURDEEP 1.0 0.6 FINDINGS LT ARM BP CUFF IS TOO PAINFUL AT THIS TIME RT BONE TENDER 70 RT DPA NO FLOW LT BONE TENDER 110 LT DPA 80 Monophasic and continuous Doppler waveform in the right posterior tibial artery. No Doppler flow signals in the dorsalis pedis artery. Abnormal resting GURDEEP of 0.6 on the right side Normal resting GURDEEP of 1.0 on the left side CONCLUSIONS 1. Abnormal resting GURDEEP on the right side of 0.6, suggestive of moderate peripheral arterial disease. Abnormal Doppler waveform in the posterior tibial artery, may suggest collateral filling. No Doppler signals in the dorsalis pedis artery, suggestive of total occlusion. 2. No significant arterial obstruction on the left side Dr Meghana Lin MD [facility] (Electronically Signed) Final Date: 01 January 2021 09:21 S
[2021-01-01] MEDS: gabapentin 100 mg Capsule 200 MG PO ×3 (08:51→20:24)
[2021-01-01] MEDS: benzonatate 100 mg Capsule PO ×3 (08:52→20:23)
[2021-01-01] MEDS: aspirin 81 mg EC Tablet PO (08:52)
[2021-01-01] MEDS: famotidine 20 mg Tablet PO ×2 (08:52→17:43)
[2021-01-01] MEDS: levothyroxine 75 mcg Tablet PO (08:52)
[2021-01-01] MEDS: HYDROcodone-acetaminophen 10-325 mg Tablet 1 TAB PO ×2 (08:52→17:43)
[2021-01-01] MEDS: ascorbic acid 500 mg Tablet PO (08:53)
[2021-01-01 09:11] LABS: Glucose Point of Care 339 mg/dL (70-110)
[2021-01-01] MEDS: zinc gluconate 50 mg Tablet PO (10:17)
[2021-01-01] MEDS: ezetimibe 10 mg Tablet PO (10:17)
[2021-01-01] MEDS: sodium chloride 0.9% 1,000 ML 100 ML IV (10:20)
[2021-01-01 10:56] LABS: Partial Thromboplastin Time 47.6 SECONDS (23.9-36.7)
[2021-01-01] MEDS: heparin 5,000 unit/mL INJ 1 mL IV (11:06)
[2021-01-01 12:24] LABS: Glucose Point of Care 586 mg/dL (70-110)
--- NOTE | 2021-01-01 12:37 | P.PN_ITS ---
Subjective Subjective: Interval history: Overnight patient has been in ICU. He was not started on an insulin drip as his anion gap had closed. Today morning his blood sugars are 300 for which he received 10 units of insulin. Before lunch sugars were more than 500. Anion gap is still closed. Repeat BMP for 4 PM. Currently patient is on room air. Denies any nausea vomiting, headache. Perip heral pulses on the right foot faintly but better palpated today. Documented urine output in last 24 hours 7 L. Medications: Reviewed: Yes Medication Review Details: States he takes [place] 10/325 twice daily Levothyroxine 75 mcg daily Lisinopril, Metformin twice a day, omeprazole, Lantus 35 units at bedtime along with NovoLog. Also states he takes a baby aspirin. Also states he was asked not to take Xarelto anymore by his primary interventionalists as he could not afford it anymore. Also states he has been not been taking his NovoLog currently as he could not afford it. Vitals/I&O/Wt Last Vital Signs Temp 99.1 F 01/01/21 09:15 Pulse 83 01/01/21 12:12 Resp 17 01/01/21 12:12 BP 113/77 01/01/21 09:15 Pulse Ox 94 01/01/21 12:12 12/31/20 01/01/21 01/01/21 22:59 06:59 14:59 Intake Total 2224.583 / 3526.250 83.75 / 3610.000 1220.417 / 1220.417 Output Total 2125 / 2775 2850 / 5625 2250 / 2250 Balance 99.583 / 751.250 -2766.25 / -2015.000 -1029.583 / -1029.583 Weight last 48 hrs Weight 87.231 kg Weight 88.904 kg Physical Exam Narrative: EXAM NARRATIVE: General: Awake alert, awake, alert, oriented x3, no acute distress HEENT: PERRLA, pupils bilaterally equal and reactive, pallors not present Chest: Normal vesicular breath sounds, occasional rhonchi present all over lung hsieh, equal good air entry bilaterally CVS: S1-S2 regular, no murmurs, no tachycardia, no gallops, no rubs Abdomen: Soft, nontender, no organomegaly, bowel sounds present, obese Neuro: No focal deficits, no facial deformity, AO x3, power 5/5 in all limbs Extremities: Left lower extremity peripheral pulses palpable up to dorsalis pedis. No gross difference in temperature both extremities. Multiple superficial scratches seen over lower extremities. Right lower limb peripheral pulses faintly palpable, dopplerable. Urinary Catheter Management^: Lewis: Cath Placed During This Visit: yes Reason for Continuing Indwelling Catheter: Accurate Measurement of Urinary Output in Critically Ill Patients Urinary Catheter Date of Insertion: 12/31/20 Data : 01/01/21 02:45 01/01/21 02:45 Other Labs: Laboratory Results WBC 5.6 10^3/uL (4.0-10.0) 01/01/21 02:45 RBC 4.20 10^6/uL (4.1-5.3) 01/01/21 02:45 Hgb 11.0 g/dL (11.7-16.6) L 01/01/21 02:45 Hct 34.8 % (42.0-52.0) L 01/01/21 02:45 MCV 82.9 fL (80-94) 01/01/21 02:45 MCH 26.2 pg (28.0-34.0) L 01/01/21 02:45 MCHC 31.6 g/dL (30.0-36.0) 01/01/21 02:45 RDW 13.5 % (12.1-15.1) 01/01/21 02:45 Plt Count 144 10^3/cmm (130-400) 01/01/21 02:45 MPV 12.5 fL (7.4-10.4) H 01/01/21 02:45 Neut % (Auto) 65.0 % 01/01/21 02:45 Lymph % (Auto) 27.8 % 01/01/21 02:45 [place] % (Auto) 6.6 % 01/01/21 02:45 Eos % (Auto) 0.0 % 01/01/21 02:45 Baso % (Auto) 0.2 % 01/01/21 02:45 Neut # (Auto) 3.63 10^3/uL (1.8-7.7) 01/01/21 02:45 Lymph # (Auto) 1.6 10^3/uL (0.8-4.8) 01/01/21 02:45 [place] # (Auto) 0.4 10^3/uL (0.2-0.9) 01/01/21 02:45 Eos # (Auto) 0.0 10^3/uL (0.0-0.8) 01/01/21 02:45 Baso # (Auto) 0.0 10^3/uL (0.0-0.1) 01/01/21 02:45 Nucleated RBC % (auto) 0 % 01/01/21 02:45 Nucleated RBCs # 0.0 /100WBC 01/01/21 02:45 PT 14.00 SECONDS (12.1-14.9) 12/31/20 13:14 INR 1.05 (0.8-1.2) 12/31/20 13:14 APTT 47.6 SECONDS (23.9-36.7) H 01/01/21 10:28 Fibrinogen 368 mg/dL (174-498) 12/31/20 13:14 D-Dimer 0.58 ug/mIFEU (0-0.59) 12/31/20 13:14 Specimen Type Arterial 12/31/20 15:33 Sample Site Radial, left 12/30/20 23:51 ABG pH 7.34 (7.35-7.45) L 12/31/20 15:33 ABG pCO2 30.9 mmHg (35-45) L 12/31/20 15:33 ABG pO2 76.4 mmHg (80.0-100.0) L 12/31/20 15:33 ABG HCO3 16.7 mmol/L (22-26) L 12/31/20 15:33 ABG Base Excess -8.0 mmol/L (-2.0-2.0) L 12/31/20 15:33 Subhash Test Pos 12/31/20 15:33 Hematocrit 36.0 % (42-52) L 12/31/20 15:33 O2 Delivery Device Nc 12/30/20 23:51 O2 Liters/Min 3.0 % 12/30/20 23:51 FiO2 32.0 % 12/30/20 23:51 Reel Blade Bender Furnace Tender ID Anonymous 12/31/20 15:33 Sodium 137 mmol/L (136-145) 01/01/21 02:45 Potassium 4.5 mmol/L (3.5-5.1) 01/01/21 02:45 Chloride 105 mmol/L (98-107) 01/01/21 02:45 Carbon Dioxide 19 mmol/L (22-29) L 01/01/21 02:45 Anion Gap 17.5 (5-19) 01/01/21 02:45 BUN 45 mg/dL (6-20) H 01/01/21 02:45 Creatinine 3.8 mg/dL (0.7-1.2) H 01/01/21 02:45 GFR Calculation 16.7 mL/min (90-130) L 01/01/21 02:45 Glucose 207 mg/dL (65-115) H 01/01/21 02:45 POC Glucose 586 mg/dL (70-110) H* 01/01/21 12:17 Calculated Osmolality 302 mOsm/kg (285-295) H 01/01/21 02:45 Lactic Acid 1.6 mmol/L (0.5-2.2) 12/30/20 23:30 Calcium 7.7 mg/dL (8.5-10.5) L 01/01/21 02:45 Magnesium 1.3 mg/dL (1.7-2.3) L 01/01/21 02:45 Iron 19 ug/dL (59-158) L 12/31/20 13:14 TIBC 253 mcg/dl 12/31/20 13:14 % Saturation 7.5 % (20-50) L 12/31/20 13:14 Unsat Iron Binding 234 ug/dL (112-347) 12/31/20 13:14 Ferritin 238 ng/mL (30-400) 01/01/21 02:45 Total Bilirubin 0.2 mg/dL (0.15-1.2) 01/01/21 02:45 AST 18 U/L (0-40) 01/01/21 02:45 ALT 18 U/L (0-41) 01/01/21 02:45 Alkaline Phosphatase 62 IU/L (40-130) 01/01/21 02:45 Lactate Dehydrogenase 207 U/L (135-225) 12/31/20 13:14 Creatine Kinase 469 U/L (39-308) H* D 12/31/20 13:14 Troponin T Gen 5 ng/L 42 ng/L (0-15) H 12/31/20 02:24 C-Reactive Protein 13.7 mg/L (0.0-4.9) H 01/01/21 02:45 NT-Pro-B Natriuret Pep 559 pg/mL (0-125) H 01/01/21 02:45 Total Protein 5.7 g/dL (6.6-8.7) L 01/01/21 02:45 Albumin 3.5 g/dL (3.5-5.2) 01/01/21 02:45 Globulin 2.2 g/dL (1.3-4.6) 01/01/21 02:45 Triglycerides 256 mg/dL (0-150) H 01/01/21 02:45 Cholesterol 148 mg/dL (0-200) 01/01/21 02:45 LDL Cholesterol, Calc 74 mg/dL (50-129) 01/01/21 02:45 Total VLDL Cholesterol 51 mg/dL (0-30) H 01/01/21 02:45 HDL Cholesterol 23 mg/dL (60-100) L 01/01/21 02:45 Cholesterol/HDL Ratio 6.43 mg/dL (1.0-5.00) H 01/01/21 02:45 Procalcitonin 0.90 ng/mL (0-0.5) H 12/31/20 13:14 TSH 0.68 uIU/mL (0.27-4.20) 12/31/20 13:14 Urine Color Yellow (Yellow) 12/31/20 03:36 Urine Appearance Clear (CLEAR) 12/31/20 03:36 Urine pH 5 (5-7) 12/31/20 03:36 Ur Specific [place] 1.030 (1.005-1.030) 12/31/20 03:36 Urine Protein Trace (Negative) 12/31/20 03:36 Urine Glucose (UA) Norm (Normal) 12/31/20 03:36 Urine Ketones Negative (Negative) 12/31/20 03:36 Urine Blood Neg (Negative) 12/31/20 03:36 Urine Nitrate Negative (Negative) 12/31/20 03:36 Urine Bilirubin 1+ (Negative) H 12/31/20 03:36 Urine Urobilinogen Norm mg/dL (Negative) 12/31/20 03:36 Ur Leukocyte Esterase Negative (Negative) 12/31/20 03:36 Urine RBC 0-4 /hpf (0-2) H 12/31/20 03:36 Urine WBC 0-4 /hpf (0-5) H 12/31/20 03:36 Ur Squamous Epith Cells 0-4 /hpf (0-5) H 12/31/20 03:36 Amorphous Sediment 2+ /hpf 12/31/20 03:36 Urine Bacteria Trace /hpf (NONE) 12/31/20 03:36 Hyaline Casts 0-4 /lpf H 12/31/20 03:36 Ur Random Sodium 21 mmol/L 12/31/20 03:36 Ur Random Potassium 32 mmol/L 12/31/20 03:36 Ur Random Chloride 16 mmol/L 12/31/20 03:36 Urine Creatinine 376 mg/dL (39-259) H 12/31/20 03:36 Serum Ketones Negative (Negative) 12/31/20 02:26 Hepatitis A IgM Ab Non-reactive (Nonreactive) 12/31/20 02:26 Hep Bs Antigen Non-reactive (Nonreactive) 12/31/20 02:26 Hep Bs Antibody 3.5 (11.5-1000) L 12/31/20 02:26 Hep B Core Total Ab Non-reactive (Nonreactive) 12/31/20 02:26 Hepatitis C Antibody Non-reactive (Nonreactive) 12/31/20 02:26 HIV 1&2 Ab & HIV 1 Ag Non-reactive (Non-Reactiv) 12/31/20 02:26 HIV 1&2 Antibody Non-reactive (Non-Reactiv) 12/31/20 02:26 Impressions Abdomen/Pelvis CT 12/31/20 04:15 IMPRESSION: 1. Increased right abdominal colonic fluid consistent with any diarrheal illness, if present. Clinical correlation is recommended. 2. Moderate urinary bladder wall thickening. Cystitis not excluded. Clinical correlation with urinalysis is recommended. 3. Fatty infiltration of the liver. 4. Peripheral rounded pulmonary ground-glass opacities with intralobular interstitial densities. Pneumonitis, including viral pneumonitis, is difficult to exclude. Clinical correlation is recommended. 5. Coronary atherosclerosis. Radiation Dose CTDIVOL = (mGy): DLP = 1601.75 (mGy-cm) Chest X-Ray 01/01/21 06:00 Impression: Improvement in patchy opacities in both lower lobes. Lower limb arterial duplex CONCLUSIONS 1. Abnormal resting GURDEEP on the right side of 0.6, suggestive of moderate peripheral arterial disease. Abnormal Doppler waveform in the posterior tibial artery, may suggest collateral filling. No Doppler signals in the dorsalis pedis artery, suggestive of total occlusion. 2. No significant arterial obstruction on the left side Renal ultrasound with Doppler FINDINGS Normal kidney dimensions bilaterally. Normal renal arterial Doppler flow velocities. Normal Doppler velocity ratios and indicis. CONCLUSIONS #1. No evidence of any significant renal artery stenosis, based on the above findings. #2. Normal kidney dimensions Dr Meghana Lin MD [facility] (Electronically Signed) Final Date: 01 January 2021 10:47 Micro: Microbiology 12/31/20 14:52 MRSA Culture - Final Nose 12/31/20 18:50 Gram Stain - Final Sputum - Expectorated Sputum 12/31/20 02:26 Blood Culture - Preliminary Blood NEGATIVE TO DATE 12/31/20 02:24 Blood Culture - Preliminary Blood NEGATIVE TO DATE 12/31/20 03:36 Bacterial Antigens - Final Urine Kidney 12/31/20 03:36 Legionella Urinary Antigen - Final Urine Catheterized A&P Assessment and plan (1) Pneumonia due to COVID-19 virus: Chest x-ray with bilateral infiltrates consistent with COVID-19 pneumonia Dexamethasone 6 mg IV daily. Advair, Spiriva. Incentive spirometry, flutter valve. Zinc, and vitamin C. Vitamin C 500 mg daily as per creatinine clearance. Continue to monitor inflammatory markers including CRP, LDH, ESR, ferritin. Case discussed with consultant technology. Who recommends if needed can give remdesivir 200 mg first dose followed by 100 mg for 5 doses. As patient currently is on room air and potential risk out with the benefits because of ongoing severe SOL we will hold off. If patient using oxygen supplementation at that point we will plan to start. Inflammatory markers for now within normal limits. Hold off on Actemra. CTA could not be done because of SOL. Renal artery stenosis ruled out. Will stop heparin drip and transition over to Xarelto from evening. Low suspicion of bacterial infection. Check urine Legionella, bacterial antigen, sputum culture. For now continue with ceftriaxone 1 g daily. Status: Acute (2) SOL (acute kidney injury): Improving. Robust urine output in last 24 hours. Fena- 0.3%. Consistent with prerenal. Renal artery stenosis ruled out by renal Doppler. CT abdomen pelvis negative for hydronephrosis/obstructive nephropathy or medical renal disease. Repeat BMP at 4 PM. Will monitor for hyperkalemia. As per the urine output will increase the saline flow rate to 200 cc/h. Will monitor for fluid overload. Strict input output charting. Daily weight. 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 Currently on baby aspirin. As per patient he was on Xarelto till June but was stopped as he could not afford the medication. Continue with aspirin 81 mg daily for now. We will transition over to Xarelto from evening. Status: Acute (3) Insulin dependent diabetes mellitus: Blood sugars elevated. Patient is also on Decadron. Anion gap has closed today morning. Start patient on Lantus 20 units nightly. Low-dose as compared to home dose of 35 units because of ongoing SOL. Insulin sliding scale at high-dose protocol. Repeating BMP at 4 PM to rule out high anion gap again. Status: Acute (4) High anion gap metabolic acidosis: Resolved. Status: Acute (5) Hypertension: Goal blood pressure less than 140/90 mmHg. Blood pressure better but soft. Hold off on lisinopril which is his home medication because of ongoing SOL. Continue to monitor. Status: Acute Qualifiers: Hypertension type: essential hypertension Qualified Code(s): I10 - Essential (primary) hypertension (6) Peripheral artery disease: Continue with aspirin, fenofibrate, ezetemibe. Check peripheral pulses every 12 hourly. Lower limb pulses improving with heparin drip. Stopping heparin drip as renal artery stenosis ruled out. Switching over to Xarelto. History of peripheral artery disease, per his description it appears he may have had critical limb ischemia in August of this year and underwent peripheral intervention at [facility]. Records requested Complains of bilateral lower extremity pain which may be related to his known peripheral neuropathy, however states that pain feels similar to his critical limb ischemia. I am able to feel pulses up to the dorsalis pedis on the left side only at this time. Check lower extremity arterial Doppler. He is uncertain if he is ever had a hypercoagulability work-up. Status: Acute (7) Hyperlipidemia: Takes ezetimibe at home, continue same for now. Status: Acute Qualifiers: Hyperlipidemia type: unspecified Qualified Code(s): E78.5 - Hyperlipidemia, unspecified (8) Hyperkalemia: Improved to 5.0 from 6.0 after being given insulin dextrose No acute ST-T changes on EKG at this time. Status: Acute Additional A&P Information Continue other chronic medications including hydrocodone, fenofibrate, azithromycin, aspirin, levothyroxine. Plan for today: Stop heparin drip and switch to Xarelto. Continue IV fluids for SOL. Monitor BMP every 12 hourly. Monitor blood sugars. Xarelto will help with ongoing COVID-19 pneumonia, history of renal artery stenosis and documented moderate peripheral artery disease on the right lower limb. Protonix for PUD prophylaxis. DVT prophylaxis: Xarelto as per creatinine clearance. Full code. Renal carb consistent diet. If repeat BMP shows normal anion gap can plan to transfer out of ICU to cardiac stepdown unit. Attestations Medical Necessity Statement*: Patient requires further hospitalization for management of severe SOL in setting of COVID-19 pneumonia, history of renal artery stenosis. Critical Care Time: The high probability of a clinically significant, sudden or life threatening deterioration of the patient's [renal, hematological, endocrine] system(s) required my full and direct attention, intervention and personal management. The critical care time is as shown. 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
--- NOTE | 2021-01-01 12:40 | PC.NURSE ---
Afternoon blood sugar is 586. Nurse alerted Dr perea and received new orders. 25 units of regular insulin now He also put in orders for long acting.
[2021-01-01 12:50] LABS: D Dimer 0.53 ug/mIFEU (0-0.59)
[2021-01-01 13:02] LABS: Estmated Average Glucose 280; Hemoglobin A1C 11.4 % (4.0-6.0)
--- NOTE | 2021-01-01 13:16 | PM.PN ---
Subjective Subjective: Interval history: No complaints Medications: Reviewed: Yes Vitals/I&O/Wt Last Vital Signs Temp 98.4 F 01/01/21 13:00 Pulse 90 01/01/21 13:00 Resp 13 01/01/21 13:00 BP 132/84 01/01/21 13:00 Pulse Ox 96 01/01/21 13:00 12/31/20 01/01/21 01/01/21 22:59 06:59 14:59 Intake Total 2224.583 / 3526.250 83.75 / 3610.000 1252.717 / 1252.717 Output Total 2125 / 2775 2850 / 5625 2750 / 2750 Balance 99.583 / 751.250 -2766.25 / -2015.000 -1497.283 / -1497.283 Weight last 48 hrs Weight 87.231 kg Weight 88.904 kg Physical Exam Urinary Catheter Management^: Lewis: Cath Placed During This Visit: yes Reason for Continuing Indwelling Catheter: Accurate Measurement of Urinary Output in Critically Ill Patients Urinary Catheter Date of Insertion: 12/31/20 Data : 01/01/21 02:45 01/01/21 02:45 Micro: Microbiology 12/31/20 14:52 MRSA Culture - Final Nose 12/31/20 18:50 Gram Stain - Final Sputum - Expectorated Sputum 12/31/20 02:26 Blood Culture - Preliminary Blood NEGATIVE TO DATE 12/31/20 02:24 Blood Culture - Preliminary Blood NEGATIVE TO DATE 12/31/20 03:36 Bacterial Antigens - Final Urine Kidney 12/31/20 03:36 Legionella Urinary Antigen - Final Urine Catheterized US Vascular: Radiologist's impression: Normal kidney dimensions bilaterally. Normal renal arterial Doppler flow velocities. Normal Doppler velocity ratios and indicis. A&P Additional A&P Information 1. Acute kidney injury, excellent urine output, renal function improving. FeNa < 1%, consistent with prerenal state. Can decrease IVF hydration. 2. COVID pneumonia. Case reports document remdesivir benefit outweighs risk in patients with low eGFR and severe COVID 3. Hyponatremia, resolved 4. Metabolic acidosis 5. Hyperkalemia, resolved. Attestations Medical Necessity Statement*: see above Time Spent in Patient Care: 16 - 35 minutes Coding Level of Care Code Acute [employer] for [employer]
--- NOTE | 2021-01-01 13:27 | PC.NURSE ---
Nurse assisted patient with ambulation. Stayed in room due to covid isolation. Patient walked about 50 feet total in room. Patient is occasionally unsteady and does require a nurse as standby assist.
[2021-01-01 13:37] LABS: Erythrocyte Sedimentation Rate 11 mm/hr (0-10)
--- NOTE | 2021-01-01 13:45 | PC.NURSE ---
Throughout day patient has appeared to be alert and oriented, however as nurse speaks with patient more, it is apparent that he is confused. Has false short term memories. We went for a walk in his room, but he recalls leaving his room and walking the unit. He was also looking for a tablet which he claims he was using earlier today, but the nurse confirmed with the that it is at home.
[2021-01-01] MEDS: insulin glargine 100 units/1 mL 20 UNIT SUBCUT (13:59)
[2021-01-01 16:39] LABS: Glucose Point of Care 225 mg/dL (70-110)
[2021-01-01 17:32] LABS: Partial Thromboplastin Time 30.7 SECONDS (23.9-36.7)
[2021-01-01] MEDS: sodium chloride 0.9% 1,000 ML 200 ML IV (17:43)
[2021-01-01 17:48] LABS: Blood Urea Nitrogen 35 mg/dL (6-20); Calcium 8.2 mg/dL (8.5-10.5); Carbon Dioxide 19 mmol/L (22-29); Chloride 100 mmol/L (98-107); Glomerular Filtration Rate 28.5 mL/min (90-130); Glucose 231 mg/dL (65-115); Osmolality Calculated 287 mOsm/kg (285-295); Sodium 131 mmol/L (136-145)
--- NOTE | 2021-01-01 18:48 | PC.NURSE ---
Shift Summary: Heparin has been discontinued. Insulin has been adjusted to a high dose scale and lantus was started. Paitient's level of confusion has increased throughout the day. Initially it was hard to notice any confusion, but now patient is having difficulty following directions, and is not oriented to location.
--- NOTE | 2021-01-01 18:53 | CTR_ITS ---
PROCEDURE INFORMATION: Exam: CT Head Without Contrast Exam date and time: 01/01/2021 6:53 PM Age: 55 years old Clinical indication: Altered mental status/memory loss; Confusion or disorientation TECHNIQUE: Imaging protocol: Computed tomography of the head without contrast. Sagittal and coronal reformatted images were created and reviewed. Radiation optimization: All CT scans at this facility use at least one of these dose optimization techniques: automated exposure control; mA and/or kV adjustment per patient size (includes targeted exams where dose is matched to clinical indication); or iterative reconstruction. COMPARISON: MRI Head w/wo* [id number] 01/20/2016 1:58 PM RADIATION DOSE METRICS: Total DLP (mGy-cm): 893.93 FINDINGS: Brain: No acute intracranial hemorrhage. No acute infarct. No intra-axial or extra-axial masses. Garner-white matter differentiation is preserved. No cerebral edema. No extra-axial fluid collections. No midline shift. No evidence for Chiari 1 malformation. Small lacunar infarcts versus prominent perivascular spaces in the right and left basal ganglia are stable. Cerebral ventricles: No hydrocephalus. Paranasal sinuses: Visualized paranasal sinuses are clear. Mastoid air cells: Visualized mastoid air cells are clear. Orbital cavity: No acute abnormality in the visualized orbits. Bones/joints: No acute fracture. Soft tissues: No acute abnormality of the extracranial soft tissues. CT/CT head wo con* [id number] IMPRESSION: 1. No acute abnormality of the brain. 2. Small lacunar infarcts versus prominent perivascular spaces in the right and left basal ganglia are stable. Radiation Dose CTDIVOL = (mGy): DLP = 893.93 (mGy-cm)
--- NOTE | 2021-01-01 19:16 | PC.NURSE ---
NUrse alerted Dr perea to increased confusion. Dr perea ordered an ABG and CT of the head without contrast.
[2021-01-01] MEDS: sodium chloride 0.9% 1,000 ML 125 ML IV (20:23)
[2021-01-01] MEDS: trazodone 150 mg Tablet PO (20:24)
[2021-01-02] VITALS (20 sets, daily range): BP systolic 119–143; BP diastolic 66–88; PULSE 73–117; RESP 12–23; TEMP 36.4–37.2; O2SAT 88–96
[2021-01-02] MEDS: albuterol 8 gm MDI 2 PUFF INHALATION ×6 (00:04→23:20)
[2021-01-02 00:06] LABS: Glucose Point of Care 118 mg/dL (70-110)
[2021-01-02] MEDS: dexamethasone 4 mg/mL INJ 6 MG IVP (01:58)
[2021-01-02] MEDS: cefTRIAXone 1,000 MG in sodium chloride 0.9% (plus) 100 ML 200 MG IV (01:58)
--- NOTE | 2021-01-02 02:35 | PC.NURSE ---
Patient transferred to C[facility] room 104, patient still on room air, having some confusion and trying to get out of bed, patients bed alarm is on, CSU is aware. Patient also spiked a temp of 101 gave Tylenol it went down to 97.5, Patient has a Lewis having good urine output so far. Patient went to CT at 1930 for confusion.
[2021-01-02] MEDS: sodium chloride 0.9% 1,000 ML 125 ML IV (04:41)
[2021-01-02] MEDS: insulin glargine 100 units/1 mL 20 UNIT SUBCUT ×2 (06:14→17:53)
[2021-01-02 07:46] LABS: Glucose Point of Care 227 mg/dL (70-110)
[2021-01-02] MEDS: aspirin 81 mg EC Tablet PO (09:00)
[2021-01-02] MEDS: benzonatate 100 mg Capsule PO ×3 (09:00→22:01)
[2021-01-02] MEDS: gabapentin 100 mg Capsule 200 MG PO ×3 (09:00→22:00)
[2021-01-02] MEDS: ascorbic acid 500 mg Tablet PO (09:00)
[2021-01-02] MEDS: levothyroxine 75 mcg Tablet PO (09:00)
[2021-01-02] MEDS: HYDROcodone-acetaminophen 10-325 mg Tablet 1 TAB PO ×2 (09:00→17:54)
[2021-01-02] MEDS: zinc gluconate 50 mg Tablet PO (09:00)
[2021-01-02] MEDS: famotidine 20 mg Tablet PO ×2 (09:00→17:54)
[2021-01-02] MEDS: ezetimibe 10 mg Tablet PO (09:00)
[2021-01-02 10:28] LABS: Basophils % 0.2 %; Hematocrit 38.1 % (42.0-52.0); Hemoglobin 11.9 g/dL (11.7-16.6); Lymphocytes # 0.9 10^3/uL (0.8-4.8); Lymphocytes % 17.6 %; Mean Corpuscular HGB Conc 31.2 g/dL (30.0-36.0); Mean Corpuscular Volume 83.2 fL (80-94); Monocytes # 0.3 10^3/uL (0.2-0.9); Monocytes % 5.6 %; Neutrophils # 4.06 10^3/uL (1.8-7.7); Neutrophils % 76.2 %; Nucleated Red Blood Cells % 0 %; Platelet Count 166 10^3/cmm (130-400); Red Blood Count 4.58 10^6/uL (4.1-5.3); Red Cell Distribution Width 13.8 % (12.1-15.1); White Blood Count 5.3 10^3/uL (4.0-10.0)
[2021-01-02 10:39] LABS: Blood Gas Operator Identificat RP
[2021-01-02 10:52] LABS: D Dimer 0.38 ug/mIFEU (0-0.59)
[2021-01-02 11:13] LABS: ABG PCO2 27.8 mmHg (35-45); ABG PH Result 7.44 (7.35-7.45); Alveolar-Arterial Oxygen Gradi 5.7 mmHg (5-10); Arterial Blood Gas Hematocrit 34.8 % (42-52); Blood Gas Allen Test Pos; Blood Gas Sample Site Brachial, left; Blood Gas Sample Type Arterial; Carboxyhemoglobin 0.9 %THgb (0.4-20.1); HCO3 ABG 19.1 mmol/L (22-26); HGB O2 Sat 94.9 % (95-100); Ionized Calcium Level - ABG 1.1 mmol/L (1.1-1.4); Methemoglobin 0.5 % (0.4-1.5); Oxygen Device ROOM AIR; Oxygen Saturation ABG 96.2; PO2 ABG 70.4 mmHg (80.0-100.0); Potassium Level - ABG 4.9 mmol/L (3.5-5.0); Total Hemoglobin 11.3 g/dL (14-18)
[2021-01-02 11:34] LABS: Erythrocyte Sedimentation Rate 39 mm/hr (0-10)
[2021-01-02 11:35] LABS: Glucose Point of Care 269 mg/dL (70-110)
[2021-01-02 11:35] LABS: Alanine Aminotransferase 42 U/L (0-41); Albumin Level 3.7 g/dL (3.5-5.2); Alkaline Phosphatase 77 IU/L (40-130); Anion Gap 18.1 (5-19); Aspartate Amino Transferase 56 U/L (0-40); Blood Urea Nitrogen 28 mg/dL (6-20); C Reactive Protein 40.7 mg/L (0.0-4.9); Calcium 8.1 mg/dL (8.5-10.5); Carbon Dioxide 17 mmol/L (22-29); Chloride 96 mmol/L (98-107); Creatinine Clr Calc Pharmacy 51.3007; Globulin 2.8 g/dL (1.3-4.6); Glomerular Filtration Rate 39.7 mL/min (90-130); Glucose 273 mg/dL (65-115); NT Pro B Type Natriuretic Pept 476 pg/mL (0-125); Osmolality Calculated 277 mOsm/kg (285-295); Potassium 5.1 mmol/L (3.5-5.1); Procalcitonin 0.36 ng/mL (0-0.5); Sodium 126 mmol/L (136-145); Total Bilirubin 0.2 mg/dL (0.15-1.2); Total Protein 6.5 g/dL (6.6-8.7)
[2021-01-02 11:49] LABS: Ferritin 390 ng/mL (30-400)
--- NOTE | 2021-01-02 12:00 | PC.NURSE ---
Instructed by Dr. Garzon to change fluid orders to 1/2 NS with 2amps of bicarb, pharmacy consulted and order was placed.
--- NOTE | 2021-01-02 12:55 | PM.PN ---
Subjective Subjective: Interval history: I am seeing him in follow up for his renal failure. No nausea or vomiting or diarrhea Medications: Reviewed: Yes Vitals/I&O/Wt Last Vital Signs Temp 98.1 F 01/02/21 07:45 Pulse 88 01/02/21 08:24 Resp 16 01/02/21 08:24 BP 141/77 01/02/21 07:45 Pulse Ox 96 01/02/21 08:24 01/01/21 01/02/21 01/02/21 22:59 06:59 14:59 Intake Total 2157.917 / 3410.634 1100 / 4510.634 966.667 / 966.667 Output Total 825 / 3875 1400 / 5275 Balance 1332.917 / -464.366 -300 / -764.366 966.667 / 966.667 Weight last 48 hrs Weight 88.451 kg Weight 87.231 kg Physical Exam Const: COMMON NORMALS: no acute distress, patient oriented x3 and alert GENERAL APPEARANCE: cooperative and comfortable ORIENTATION/CONSCIOUSNESS: Yes awake Resp: COMMON NORMALS: clear to auscultation bilaterally AUSCULTATION: clear to auscultation bilaterally Cardio: COMMON NORMALS: S1 normal heart sound present and S2 normal heart sound present HEART SOUNDS: S1 normal heart sound present and S2 normal heart sound present GI: AUSCULTATION: Yes normoactive bowel sounds Extremity: GENERAL: No edema Neuro: COMMON NORMALS: patient oriented x3 SENSORIUM/ORIENTATION: Yes alert Skin: COMMON NORMALS: no rashes or lesions noted GENERAL SKIN EXAM: no rashes or lesions noted Urinary Catheter Management^: Lewis: Cath Placed During This Visit: yes Reason for Continuing Indwelling Catheter: Accurate Measurement of Urinary Output in Critically Ill Patients Urinary Catheter Date of Insertion: 12/31/20 Data : 01/02/21 10:00 01/02/21 10:00 Micro: Microbiology 01/02/21 09:50 Blood Culture - Preliminary Blood SPECIMEN COLLECTED 01/02/21 10:00 Blood Culture - Preliminary Blood SPECIMEN COLLECTED 12/31/20 18:50 Gram Stain - Final Sputum - Expectorated Sputum Sputum Culture - Preliminary 12/31/20 14:52 MRSA Culture - Final Nose A&P Assessment and plan (1) SOL (acute kidney injury): Kidney function improving, continue iv fluids, avoid new nephrotoxins Status: Acute (2) Hypertension: BP under control Status: Acute Qualifiers: Hypertension type: essential hypertension Qualified Code(s): I10 - Essential (primary) hypertension (3) Metabolic acidosis: Will switch iv fluids to bicarb drip Status: Acute (4) Hyponatremia: will monitor Status: Acute (5) Anemia: Follow hb Status: Acute Attestations Medical Necessity Statement*: SOL Coding Level of Care Code 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
--- NOTE | 2021-01-02 13:43 | P.PN_ITS ---
Subjective Subjective: Interval history: Transfer to ICU yesterday evening. Has remained stable overnight. Documented mild confusion as per nursing staff night when he pulled out the IV line. Today morning examination he is AO x3, having complete conversation. Nose he pulled out the IV line by mistake. Asking when can the catheter be removed. We discussed that in last 24 hours he is putting out almost 200 cc of urine per hour and without the catheter he will find it difficult. Patient has agreed to keep the catheter in for now. Examination patient denies any difficulty in breathing, nausea, vomiting, headache. States he is feeling a lot better now. Medications: Reviewed: Yes Medication Review Details: States he takes [place] 10/325 twice daily Levothyroxine 75 mcg daily Lisinopril, Metformin twice a day, omeprazole, Lantus 35 units at bedtime along with NovoLog. Also states he takes a baby aspirin. Also states he was asked not to take Xarelto anymore by his primary interven tionalists as he could not afford it anymore. Also states he has been not been taking his NovoLog currently as he could not afford it. Vitals/I&O/Wt Last Vital Signs Temp 98.1 F 01/02/21 07:45 Pulse 88 01/02/21 08:24 Resp 16 01/02/21 08:24 BP 141/77 01/02/21 07:45 Pulse Ox 96 01/02/21 08:24 01/01/21 01/02/21 01/02/21 22:59 06:59 14:59 Intake Total 2157.917 / 3410.634 1100 / 4510.634 1438.667 / 1438.667 Output Total 825 / 3875 1400 / 5275 2400 / 2400 Balance 1332.917 / -464.366 -300 / -764.366 -961.333 / -961.333 Weight last 48 hrs Weight 88.451 kg Weight 87.231 kg Physical Exam Narrative: EXAM NARRATIVE: General: Awake alert, awake, alert, oriented x3, no acute distress HEENT: PERRLA, pupils bilaterally equal and reactive, pallors not present Chest: Normal vesicular breath sounds, occasional rhonchi present all over lung hsieh, equal good air entry bilaterally CVS: S1-S2 regular, no murmurs, no tachycardia, no gallops, no rubs Abdomen: Soft, nontender, no organomegaly, bowel sounds present, obese Neuro: No focal deficits, no facial deformity, AO x3, power 5/5 in all limbs Extremities: Left lower extremity peripheral pulses palpable up to dorsalis pedis. No gross difference in temperature both extremities. Multiple superficial scratches seen over lower extremities. Right lower limb peripheral pulses faintly palpable, dopplerable. Urinary Catheter Management^: Lewis: Cath Placed During This Visit: yes Reason for Continuing Indwelling Catheter: Accurate Measurement of Urinary Output in Critically Ill Patients Urinary Catheter Date of Insertion: 12/31/20 Data : 01/02/21 10:00 01/02/21 10:00 Micro: Microbiology 01/02/21 09:50 Blood Culture - Preliminary Blood SPECIMEN COLLECTED 01/02/21 10:00 Blood Culture - Preliminary Blood SPECIMEN COLLECTED 12/31/20 18:50 Gram Stain - Final Sputum - Expectorated Sputum Sputum Culture - Preliminary 12/31/20 14:52 MRSA Culture - Final Nose A&P Assessment and plan (1) Pneumonia due to COVID-19 virus: Remains on room air. Chest x-ray with bilateral infiltrates consistent with COVID-19 pneumonia Dexamethasone 6 mg IV daily. Patient will need steroids for overall 10 days. Advair, Spiriva. Incentive spirometry, flutter valve. Zinc, and vitamin C. Vitamin C 500 mg daily as per creatinine clearance. Continue to monitor inflammatory markers including CRP, LDH, ESR, ferritin. Case discussed with aviation operations specialist. Who recommends if needed can give remdesivir 200 mg first dose followed by 100 mg for 5 doses. As patient currently is on room air and potential risk out with the benefits because of ongoing severe SOL we will hold off. If patient using oxygen supplementation at that point we will plan to start. Inflammatory markers for now within normal limits. Hold off on Actemra. CTA could not be done because of SOL. Renal artery stenosis ruled out. Will stop heparin drip and transition over to Xarelto from evening. Low suspicion of bacterial infection. Check urine Legionella, bacterial antigen, sputum culture. For now continue with ceftriaxone 1 g daily. Status: Acute (2) SOL (acute kidney injury): Improving. Creatinine down to 1.8 today. Continues to have robust urine output in last 24 hours. Fena- 0.3%. Consistent with prerenal. Renal artery stenosis ruled out by renal Doppler. CT abdomen pelvis negative for hydronephrosis/obstructive nephropathy or medical renal disease. Repeat BMP at 7 PM. Will monitor for hyperkalemia. Having hyponatremia and metabolic acidosis today. Fluid changed to half NS with sodium bicarb. Increase the rate to 200 cc/h as patient is almost having 300 cc of urine per hour currently. Strict input output charting. Daily weight. 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 Currently on baby aspirin. As per patient he was on Xarelto till June but was stopped as he could not afford the medication. Continue with aspirin 81 mg daily for now. We will transition over to Xarelto from evening. Status: Acute (3) Insulin dependent diabetes mellitus: Blood sugars elevated. Patient is also on Decadron. Anion gap has closed today morning. Blood sugar still elevated. Increase Lantus to 20 units twice daily. Insulin sliding scale at high-dose protocol. Status: Acute (4) High anion gap metabolic acidosis: Resolved. Status: Acute (5) Hypertension: Goal blood pressure less than 140/90 mmHg. Blood pressure better but soft. Hold off on lisinopril which is his home medication because of ongoing SOL. Continue to monitor. Status: Acute Qualifiers: Hypertension type: essential hypertension Qualified Code(s): I10 - Essential (primary) hypertension (6) Peripheral artery disease: Continue with aspirin, fenofibrate, ezetemibe. Check peripheral pulses every 12 hourly. Lower limb pulses improving with heparin drip. Stopping heparin drip as renal artery stenosis ruled out. Switching over to Xarelto. History of peripheral artery disease, per his description it appears he may have had critical limb ischemia in August of this year and underwent peripheral intervention at [facility]. Records requested Complains of bilateral lower extremity pain which may be related to his known peripheral neuropathy, however states that pain feels similar to his critical limb ischemia. I am able to feel pulses up to the dorsalis pedis on the left side only at this time. Check lower extremity arterial Doppler. He is uncertain if he is ever had a hypercoagulability work-up. Status: Acute (7) Hyperlipidemia: Takes ezetimibe at home, continue same for now. Status: Acute Qualifiers: Hyperlipidemia type: unspecified Qualified Code(s): E78.5 - Hyperlipidemia, unspecified (8) Hyperkalemia: Improved to 5.0 from 6.0 after being given insulin dextrose No acute ST-T changes on EKG at this time. Status: Acute Additional A&P Information Continue other chronic medications including hydrocodone, fenofibrate, azithromycin, aspirin, levothyroxine. Plan for today: Monitoring BMP. Switching fluid to half NS sodium bicarb drip at 200. Increasing Lantus for better sugar control. Continue to monitor oxygen supplementation. Continue COVID-19 treatment. Protonix for PUD prophylaxis. DVT prophylaxis: Xarelto as per creatinine clearance. Full code. Renal carb consistent diet. If repeat BMP shows normal anion gap can plan to transfer out of ICU to cardiac stepdown unit. Attestations Medical Necessity Statement*: Requires further hospitalization for management of acute kidney injury, acidosis, COVID-19 pneumonia. Time Spent in Patient Care: Greater than 35 minutes (>than 50% of time spent in counselling and/or direct pt care on unit) . Coding Level of Care Code Acute Net Ui Developer for [facility] Fwd Diagnoses Pneumonia due to COVID-19 virus U07.1; J12.82 SOL (acute kidney injury) N17.9 Insulin dependent diabetes mellitus High anion gap metabolic acidosis E87.2 Hypertension I10 Hypertension type: essential hypertension Peripheral artery disease I73.9 Hyperlipidemia E78.5 Hyperlipidemia type: unspecified Hyperkalemia E87.5
[2021-01-02 17:09] LABS: Glucose Point of Care 283 mg/dL (70-110)
[2021-01-02] MEDS: rivaroxaban 10 mg Tablet 15 MG PO (17:53)
[2021-01-02 19:30] LABS: Blood Urea Nitrogen 28 mg/dL (6-20); Calcium 8.3 mg/dL (8.5-10.5); Carbon Dioxide 20 mmol/L (22-29); Chloride 97 mmol/L (98-107); Glomerular Filtration Rate 45.4 mL/min (90-130); Glucose 285 mg/dL (65-115); Osmolality Calculated 290 mOsm/kg (285-295); Sodium 132 mmol/L (136-145)
[2021-01-02 19:57] LABS: Anion Gap 19.6 (5-19); Potassium 4.6 mmol/L (3.5-5.1)
[2021-01-02 20:21] LABS: Glucose Point of Care 228 mg/dL (70-110)
[2021-01-02] MEDS: trazodone 150 mg Tablet PO (22:01)
[2021-01-03] VITALS (9 sets, daily range): BP systolic 99–149; BP diastolic 68–76; PULSE 84–102; RESP 16–21; TEMP 36.6–37.1; O2SAT 87–95
[2021-01-03] MEDS: cefTRIAXone 1,000 MG in sodium chloride 0.9% (plus) 100 ML 200 MG IV (02:34)
[2021-01-03] MEDS: dexamethasone 4 mg/mL INJ 6 MG IVP (02:35)
--- NOTE | 2021-01-03 02:56 | PC.NURSE ---
Bedside report received from Mickie NUNEZ. Patient is A & O playing and game on his phone. Patient has no C/O of pain or other needs at this time.
[2021-01-03] MEDS: albuterol 8 gm MDI 2 PUFF INHALATION (02:59)
--- NOTE | 2021-01-03 06:00 | XRR_ITS ---
PROCEDURE INFORMATION: Exam: XR Chest Exam date and time: 01/03/2021 6:00 AM Age: 55 years old Clinical indication: Shortness of breath; Additional info: Covid TECHNIQUE: Imaging protocol: XR of the chest. Views: 1 view. COMPARISON: CR XR chest 1V portable [id number] 01/01/2021 6:27 AM FINDINGS: Lungs: Bilateral interstitial pulmonary infiltrates are present which are consistent with an interstitial viral pneumonia. There are more prominent than on previous study. Pleural spaces: Unremarkable. No pleural effusion. No pneumothorax. Heart/Mediastinum: Unremarkable. No cardiomegaly. Bones/joints: Unremarkable. XR/XR chest 1V portable [id number] IMPRESSION: Worsening bilateral interstitial infiltrates consistent with viral pneumonia.
[2021-01-03 06:53] LABS: Hematocrit 35.6 % (42.0-52.0); Hemoglobin 11.4 g/dL (11.7-16.6); Lymphocytes # 0.9 10^3/uL (0.8-4.8); Lymphocytes % 18.8 %; Mean Corpuscular Hemoglobin 26.2 pg (28.0-34.0); Mean Corpuscular Volume 81.8 fL (80-94); Mean Platelet Volume 13.5 fL (7.4-10.4); Monocytes # 0.2 10^3/uL (0.2-0.9); Monocytes % 5.2 %; Neutrophils # 3.51 10^3/uL (1.8-7.7); Neutrophils % 75.6 %; Nucleated Red Blood Cells % 0 %; Platelet Count 152 10^3/cmm (130-400); Red Blood Count 4.35 10^6/uL (4.1-5.3); Red Cell Distribution Width 13.4 % (12.1-15.1); White Blood Count 4.6 10^3/uL (4.0-10.0)
[2021-01-03 07:16] LABS: Alanine Aminotransferase 36 U/L (0-41); Albumin Level 3.5 g/dL (3.5-5.2); Alkaline Phosphatase 64 IU/L (40-130); Aspartate Amino Transferase 41 U/L (0-40); Blood Urea Nitrogen 23 mg/dL (6-20); C Reactive Protein 37.3 mg/L (0.0-4.9); Calcium 8.1 mg/dL (8.5-10.5); Carbon Dioxide 24 mmol/L (22-29); Chloride 96 mmol/L (98-107); Ferritin 410 ng/mL (30-400); Globulin 2.6 g/dL (1.3-4.6); Glomerular Filtration Rate 42.4 mL/min (90-130); Glucose 107 mg/dL (65-115); NT Pro B Type Natriuretic Pept 446 pg/mL (0-125); Osmolality Calculated 280 mOsm/kg (285-295); Sodium 133 mmol/L (136-145); Total Bilirubin 0.2 mg/dL (0.15-1.2); Total Protein 6.1 g/dL (6.6-8.7)
[2021-01-03 07:28] LABS: Anion Gap 17.3 (5-19); Potassium 4.3 mmol/L (3.5-5.1)
[2021-01-03 07:33] LABS: D Dimer 0.61 ug/mIFEU (0-0.59)
[2021-01-03 08:03] LABS: Glucose Point of Care 159 mg/dL (70-110)
[2021-01-03 08:20] LABS: Erythrocyte Sedimentation Rate 46 mm/hr (0-10)
[2021-01-03] MEDS: insulin glargine 100 units/1 mL 20 UNIT SUBCUT (09:13)
[2021-01-03] MEDS: benzonatate 100 mg Capsule PO (09:17)
[2021-01-03] MEDS: levothyroxine 75 mcg Tablet PO (09:17)
[2021-01-03] MEDS: ascorbic acid 500 mg Tablet PO (09:17)
[2021-01-03] MEDS: zinc gluconate 50 mg Tablet PO (09:17)
[2021-01-03] MEDS: ezetimibe 10 mg Tablet PO (09:17)
[2021-01-03] MEDS: HYDROcodone-acetaminophen 10-325 mg Tablet 1 TAB PO (09:17)
[2021-01-03] MEDS: aspirin 81 mg EC Tablet PO (09:18)
[2021-01-03] MEDS: gabapentin 100 mg Capsule 200 MG PO (09:24)
[2021-01-03] MEDS: rivaroxaban 10 mg Tablet 15 MG PO (09:24)
[2021-01-03] MEDS: famotidine 20 mg Tablet PO (09:25)
--- NOTE | 2021-01-03 09:32 | P.DS_ITS ---
Discharge Providers Date of Admission: 12/31/20 02:08 Date of Discharge: January 03, 2021 Attending Provider at Admission: Laura Mosley MD Attending Provider at Discharge: Mahamed Ruiz MD Consults: Telemetry nephrology Primary Care Provider: TARA Feliz Diagnoses at Discharge Discharge Diagnosis (1) Pneumonia due to COVID-19 virus: Status: Acute (2) SOL (acute kidney injury): Status: Acute (3) Insulin dependent diabetes mellitus: Status: Acute (4) High anion gap metabolic acidosis: Status: Acute (5) Hypertension: Status: Acute Qualifiers: Hypertension type: essential hypertension Qualified Code(s): I10 - Essential (primary) hypertension (6) Peripheral artery disease: Status: Acute (7) Hyperlipidemia: Status: Acute Qualifiers: Hyperlipidemia type: unspecified Qualified Code(s): E78.5 - Hyperlipidemia, unspecified (8) Hyperkalemia: Status: Acute Reason for Visit Reason for Visit: COVID+ ON MONDAY LOW O2 Hospital Course Hospital Course Navneet Meneses is a 55 year old male with a past medical history peripheral artery disease, 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 Patient was on anticoagulation with Xarelto until June of this year, discontinued it as he could not afford the co-pay. Thereafter reportedly was told by his vascular surgeon he could be on baby aspirin alone. He was diagnosed with COVID-19 on Monday shortly after his and son came out of COVID-19 quarantine. He was tested at an urgent care and [place]. Symptoms at the time were fever chills and rigors. He also had cough. Denies shortness of breath. Today when his returned from work she noted that he had more tremors than usual in bilateral upper extremities, appeared to be more lethargic, oxygen saturation was down to 84% at room air and therefore she was brought into the emergency room. Work-up here is notable for acute kidney injury with creatinine up to 6.5, hyperkalemia with potassium at 6.0. Lewis was placed and he has had no urine output so far. He is unable to tell me if urine output had been reducing at home. No recent blood in urine. Systolic blood pressure upon admission was 80 systolic, improved with 2 L IV fluids to 110/65 at the time of my assessment. He is currently saturating 92% on 3 L/min nasal cannula. Chest x-ray shows bilateral infiltrates consistent with COVID-19 pneumonitis. Patient received his first dose of COVID-19 vaccine 1 day prior to testing positive for Covid. He denies any current chest pain or palpitations. No known cardiac history. States blood pressure has been controlled at home. He usually takes lisinopril. Does not know his last baseline creatinine. Denies any GI losses by way of vomiting or diarrhea. At this present time patient states his chief complaint is the tremors and also pain in his bilateral lower extremities. He does have peripheral neuropathy and takes gabapentin for the same. Recent history is notable for what appears to be critical limb ischemia per his history, underwent vascular intervention in August 2020 at [facility]. He was admitted to the hospital for further management of SOL and COVID-19. For SOL, at start he was started on heparin drip given his history of renal artery stenosis and revascularization along with IV fluids for dehydration. Medical reconciliation was performed and lisinopril was stopped. Renal duplex ruled out renal artery stenosis. Heparin drip was stopped and transitioned over to oral Xarelto. Nephrology was consulted. With IV hydration patient's kidney functions stabilized to 1.7-1.8 for last 2 days. For COVID-19 patient was started on treatment with Decadron and inhalation treatment. He did not require any oxygen during the whole hospitalization so he was not started on IV remdesivir. Patient is being discharged on oral Decadron for 6 more days, inhalation treatment with Advair and Spiriva along with incentive spirometry and flutter valve. During hospitalization patient was also found to have very severe arterial disease confirmed with lower limb duplex. Xarelto would also help with the same. Patient is being discharged in hemodynamically stable condition with advice to continue taking Advair, Spiriva for next 2 weeks, holding off on lisinopril going forward, maintaining his blood pressure diary and following up care provider within next 3 days for repeat BMP. He was advised to take at least 3 L of fluid daily and monitor his urine output. He is advised to maintain a blood pressure diary at home. He is also advised to continue taking Xarelto. His medications have been sent to [facility] pharmacy. Patient verbalized understanding. His home dose of Lantus has been adjusted as well. Physical Exam Narrative: EXAM NARRATIVE: General: Awake alert, awake, alert, oriented x3, no acute distress HEENT: PERRLA, pupils bilaterally equal and reactive, pallors not present Chest: Normal vesicular breath sounds, occasional rhonchi present all over lung hsieh, equal good air entry bilaterally CVS: S1-S2 regular, no murmurs, no tachycardia, no gallops, no rubs Abdomen: Soft, nontender, no organomegaly, bowel sounds present, obese Neuro: No focal deficits, no facial deformity, AO x3, power 5/5 in all limbs Extremities: Left lower extremity peripheral pulses palpable up to dorsalis pedis. No gross difference in temperature both extremities. Multiple superficial scratches seen over lower extremities. Right lower limb peripheral pulses faintly palpable, dopplerable. Urinary Catheter Management^: Lewis: Cath Placed During This Visit: yes Reason for Continuing Indwelling Catheter: Other Urinary Catheter Date of Insertion: 12/31/20 Discharge Data Data Completed and Pending: Completed Studies During Hospitalization Category Date Time Status CT head wo con* 7 0450 Routine Cat Scan 01/01/21 18:[address] kidney stone 7 4176 Routine Cat Scan 12/31/20 04:15 Completed XR chest 1V steven ble 54517 Q48H Exams 01/01/21 06:00 Completed XR chest 1V steven ble [id number] Stat Exams 12/30/20 22:47 [place] [id number] Rout ine Ultrasound 01/01/21 07:00 Completed CV renal doppler [id number] Routine Ultrasound 01/01/21 06:00 Completed Pending at discharge Category Date Time Status XR chest 1V steven ble 80561 Q48H Exams 01/03/21 06:00 Taken XR chest 1V steven ble [id number] Q48H Exams 01/05/21 06:00 Ordered Blood Culture AM LABS Lab 01/02/21 09:50 Results Blood Culture Rou corazno Lab 12/31/20 02:26 Results Sputum Culture an d Gram Stain Stat Lab 12/31/20 18:50 Results Labs from last 24 hours 01/03/21 01/03/21 01/03/21 07:28 04:14 04:14 WBC 4.6 RBC 4.35 Hgb 11.4 L Hct 35.6 L MCV 81.8 MCH 26.2 L MCHC 32.0 RDW 13.4 Plt Count 152 MPV 13.5 H Neut % (Auto) 75.6 Lymph % (Auto) 18.8 Scurry % (Auto) 5.2 Eos % (Auto) 0.0 Baso % (Auto) 0.0 Neut # (Auto) 3.51 Lymph # (Auto) 0.9 Scurry # (Auto) 0.2 Eos # (Auto) 0.0 Baso # (Auto) 0.0 Nucleated RBC % (a uto) 0 Nucleated RBCs # 0.0 ESR D-Dimer Specimen Type Sample Site ABG pH ABG pCO2 ABG pO2 ABG HCO3 ABG O2 Saturation ABG Base Excess Subhash Test A-a O2 Gradient Hematocrit Hgb O2 Saturation Carboxyhemoglobin Methemoglobin Total Hemoglobin Ionized Calcium O2 Delivery Device Vocal Music Instructor ID Sodium 133 L Potassium 4.3 Chloride 96 L Carbon Dioxide 24 Anion Gap 17.3 BUN 23 H Creatinine 1.7 H GFR Calculation 42.4 L Glucose 107 POC Glucose 159 H Calculated Osmolal ity 280 L Calcium 8.1 L Ferritin 410 H Total Bilirubin 0.2 AST 41 H ALT 36 Alkaline Phosphata se 64 C-Reactive Protein 37.3 H NT-Pro-B Natriuret Pep 446 H Total Protein 6.1 L Albumin 3.5 Globulin 2.6 Procalcitonin 01/03/21 01/03/21 01/02/21 04:14 04:14 20:03 WBC RBC Hgb Hct MCV MCH MCHC RDW Plt Count MPV Neut % (Auto) Lymph % (Auto) Scurry % (Auto) Eos % (Auto) Baso % (Auto) Neut # (Auto) Lymph # (Auto) Scurry # (Auto) Eos # (Auto) Baso # (Auto) Nucleated RBC % (a uto) Nucleated RBCs # ESR 46 H D-Dimer 0.61 H Specimen Type Sample Site ABG pH ABG pCO2 ABG pO2 ABG HCO3 ABG O2 Saturation ABG Base Excess Subhash Test A-a O2 Gradient Hematocrit Hgb O2 Saturation Carboxyhemoglobin Methemoglobin Total Hemoglobin Ionized Calcium O2 Delivery Device Vocal Music Instructor ID Sodium Potassium Chloride Carbon Dioxide Anion Gap BUN Creatinine GFR Calculation Glucose POC Glucose 228 H Calculated Osmolal ity Calcium Ferritin Total Bilirubin AST ALT Alkaline Phosphata se C-Reactive Protein NT-Pro-B Natriuret Pep Total Protein Albumin Globulin Procalcitonin 01/02/21 01/02/21 01/02/21 19:00 16:08 11:28 WBC RBC Hgb Hct MCV MCH MCHC RDW Plt Count MPV Neut % (Auto) Lymph % (Auto) Scurry % (Auto) Eos % (Auto) Baso % (Auto) Neut # (Auto) Lymph # (Auto) Scurry # (Auto) Eos # (Auto) Baso # (Auto) Nucleated RBC % (a uto) Nucleated RBCs # ESR D-Dimer Specimen Type Sample Site ABG pH ABG pCO2 ABG pO2 ABG HCO3 ABG O2 Saturation ABG Base Excess Subhash Test A-a O2 Gradient Hematocrit Hgb O2 Saturation Carboxyhemoglobin Methemoglobin Total Hemoglobin Ionized Calcium O2 Delivery Device Vocal Music Instructor ID Sodium 132 L Potassium 4.6 Chloride 97 L Carbon Dioxide 20 L Anion Gap 19.6 H BUN 28 H Creatinine 1.6 H GFR Calculation 45.4 L Glucose 285 H POC Glucose 283 H 269 H Calculated Osmolal ity 290 Calcium 8.3 L Ferritin Total Bilirubin AST ALT Alkaline Phosphata se C-Reactive Protein NT-Pro-B Natriuret Pep Total Protein Albumin Globulin Procalcitonin 01/02/21 01/02/21 01/02/21 11:00 10:00 10:00 WBC 5.3 RBC 4.58 Hgb 11.9 Hct 38.1 L MCV 83.2 MCH 26.0 L MCHC 31.2 RDW 13.8 Plt Count 166 MPV 13.0 H Neut % (Auto) 76.2 Lymph % (Auto) 17.6 Scurry % (Auto) 5.6 Eos % (Auto) 0.0 Baso % (Auto) 0.2 Neut # (Auto) 4.06 Lymph # (Auto) 0.9 Scurry # (Auto) 0.3 Eos # (Auto) 0.0 Baso # (Auto) 0.0 Nucleated RBC % (a uto) 0 Nucleated RBCs # 0.0 ESR D-Dimer Specimen Type Arterial Sample Site Brachial, left ABG pH 7.44 ABG pCO2 27.8 L ABG pO2 70.4 L ABG HCO3 19.1 L ABG O2 Saturation 96.2 ABG Base Excess -4.0 L Subhash Test Pos A-a O2 Gradient 5.7 Hematocrit 34.8 L Hgb O2 Saturation 94.9 L Carboxyhemoglobin 0.9 Methemoglobin 0.5 Total Hemoglobin 11.3 L Ionized Calcium 1.1 O2 Delivery Device Room air Vocal Music Instructor ID Jn Sodium 131.0 126 L Potassium 4.9 5.1 Chloride 96 L Carbon Dioxide 17 L Anion Gap 18.1 BUN 28 H Creatinine 1.8 H GFR Calculation 39.7 L Glucose 272.0 H 273 H POC Glucose Calculated Osmolal ity 277 L Calcium 8.1 L Ferritin 390 Total Bilirubin 0.2 AST 56 H ALT 42 H Alkaline Phosphata se 77 C-Reactive Protein 40.7 H NT-Pro-B Natriuret Pep 476 H Total Protein 6.5 L Albumin 3.7 Globulin 2.8 Procalcitonin 0.36 01/02/21 01/02/21 12/31/20 10:00 10:00 15:33 WBC RBC Hgb Hct MCV MCH MCHC RDW Plt Count MPV Neut % (Auto) Lymph % (Auto) Scurry % (Auto) Eos % (Auto) Baso % (Auto) Neut # (Auto) Lymph # (Auto) Scurry # (Auto) Eos # (Auto) Baso # (Auto) Nucleated RBC % (a uto) Nucleated RBCs # ESR 39 H D-Dimer 0.38 Specimen Type Sample Site Not Reportable ABG pH ABG pCO2 ABG pO2 ABG HCO3 ABG O2 Saturation ABG Base Excess Subhash Test A-a O2 Gradient Hematocrit Hgb O2 Saturation Carboxyhemoglobin Methemoglobin Total Hemoglobin Ionized Calcium O2 Delivery Device Not Reportable Vocal Music Instructor ID Rp Sodium Potassium Chloride Carbon Dioxide Anion Gap BUN Creatinine GFR Calculation Glucose POC Glucose Calculated Osmolal ity Calcium Ferritin Total Bilirubin AST ALT Alkaline Phosphata se C-Reactive Protein NT-Pro-B Natriuret Pep Total Protein Albumin Globulin Procalcitonin Addt'l Data from Hospital Stay: Laboratory Results WBC 4.6 10^3/uL (4.0- 10.0) 01/03/21 04:14 RBC 4.35 10^6/uL (4.1 -5.3) 01/03/21 04:14 Hgb 11.4 g/dL (11.7-1 6.6) L 01/03/21 04:14 Hct 35.6 % (42.0-52.0 ) L 01/03/21 04:14 MCV 81.8 fL (80-94) 01/03/21 04:14 MCH 26.2 pg (28.0-34. 0) L 01/03/21 04:14 MCHC 32.0 g/dL (30.0-3 6.0) 01/03/21 04:14 RDW 13.4 % (12.1-15.1 ) 01/03/21 04:14 Plt Count 152 10^3/cmm (130 -400) 01/03/21 04:14 MPV 13.5 fL (7.4-10.4 ) H 01/03/21 04:14 Neut % (Auto) 75.6 % 01/03/21 04:14 Lymph % (Auto) 18.8 % 01/03/21 04:14 Scurry % (Auto) 5.2 % 01/03/21 04:14 Eos % (Auto) 0.0 % 01/03/21 04:14 Baso % (Auto) 0.0 % 01/03/21 04:14 Neut # (Auto) 3.51 10^3/uL (1.8 -7.7) 01/03/21 04:14 Lymph # (Auto) 0.9 10^3/uL (0.8- 4.8) 01/03/21 04:14 Scurry # (Auto) 0.2 10^3/uL (0.2- 0.9) 01/03/21 04:14 Eos # (Auto) 0.0 10^3/uL (0.0- 0.8) 01/03/21 04:14 Baso # (Auto) 0.0 10^3/uL (0.0- 0.1) 01/03/21 04:14 Nucleated RBC % (a uto) 0 % 01/03/21 04:14 Nucleated RBCs # 0.0 /100WBC 01/03/21 04:14 ESR 46 mm/hr (0-10) H 01/03/21 04:14 PT 14.00 SECONDS (12 .1-14.9) 12/31/20 13:14 INR 1.05 (0.8-1.2) 12/31/20 13:14 APTT 30.7 SECONDS (23. 9-36.7) 01/01/21 16:55 Fibrinogen 368 mg/dL (174-49 8) 12/31/20 13:14 D-Dimer 0.61 ug/mIFEU (0- 0.59) H 01/03/21 04:14 Specimen Type Arterial 01/02/21 11:00 Sample Site Brachial, left 01/02/21 11:00 ABG pH 7.44 (7.35-7.45) 01/02/21 11:00 ABG pCO2 27.8 mmHg (35-45) L 01/02/21 11:00 ABG pO2 70.4 mmHg (80.0-1 00.0) L 01/02/21 11:00 ABG HCO3 19.1 mmol/L (22-2 6) L 01/02/21 11:00 ABG O2 Saturation 96.2 01/02/21 11:00 ABG Base Excess -4.0 mmol/L (-2.0 -2.0) L 01/02/21 11:00 Subhash Test Pos 01/02/21 11:00 A-a O2 Gradient 5.7 mmHg (5-10) 01/02/21 11:00 Hematocrit 34.8 % (42-52) L 01/02/21 11:00 Hgb O2 Saturation 94.9 % (95-100) L 01/02/21 11:00 Carboxyhemoglobin 0.9 %THgb (0.4-20 .1) 01/02/21 11:00 Methemoglobin 0.5 % (0.4-1.5) 01/02/21 11:00 Total Hemoglobin 11.3 g/dL (14-18) L 01/02/21 11:00 Sodium 131.0 mmol/L (131 -143) 01/02/21 11:00 Potassium 4.9 mmol/L (3.5-5 .0) 01/02/21 11:00 Glucose 272.0 mg/dL (70-1 15) H 01/02/21 11:00 Ionized Calcium 1.1 mmol/L (1.1-1 .4) 01/02/21 11:00 O2 Delivery Device Room air 01/02/21 11:00 O2 Liters/Min 3.0 % 12/30/20 23:51 FiO2 32.0 % 12/30/20 23:51 Vocal Music Instructor ID Jn 01/02/21 11:00 Sodium 133 mmol/L (136-1 45) L 01/03/21 04:14 Potassium 4.3 mmol/L (3.5-5 .1) 01/03/21 04:14 Chloride 96 mmol/L (98-107 ) L 01/03/21 04:14 Carbon Dioxide 24 mmol/L (22-29) 01/03/21 04:14 Anion Gap 17.3 (5-19) 01/03/21 04:14 BUN 23 mg/dL (6-20) H 01/03/21 04:14 Creatinine 1.7 mg/dL (0.7-1. 2) H 01/03/21 04:14 GFR Calculation 42.4 mL/min (90-1 30) L 01/03/21 04:14 Glucose 107 mg/dL (65-115 ) 01/03/21 04:14 POC Glucose 159 mg/dL (70-110 ) H 01/03/21 07:28 Estimat Average Gl ucose 280 01/01/21 02:45 Hemoglobin A1c 11.4 % (4.0-6.0) H 01/01/21 02:45 Calculated Osmolal ity 280 mOsm/kg (285- 295) L 01/03/21 04:14 Lactic Acid 1.6 mmol/L (0.5-2 .2) 12/30/20 23:30 Calcium 8.1 mg/dL (8.5-10 .5) L 01/03/21 04:14 Magnesium 1.3 mg/dL (1.7-2. 3) L 01/01/21 02:45 Iron 19 ug/dL (59-158) L 12/31/20 13:14 TIBC 253 mcg/dl 12/31/20 13:14 % Saturation 7.5 % (20-50) L 12/31/20 13:14 Unsat Iron Binding 234 ug/dL (112-34 7) 12/31/20 13:14 Ferritin 410 ng/mL (30-400 ) H 01/03/21 04:14 Total Bilirubin 0.2 mg/dL (0.15-1 .2) 01/03/21 04:14 AST 41 U/L (0-40) H 01/03/21 04:14 ALT 36 U/L (0-41) 01/03/21 04:14 Alkaline Phosphata se 64 IU/L (40-130) 01/03/21 04:14 Lactate Dehydrogen ase 207 U/L (135-225) 12/31/20 13:14 Creatine Kinase 469 U/L (39-308) H* D 12/31/20 13:14 Troponin T Gen 5 n g/L 42 ng/L (0-15) H 12/31/20 02:24 C-Reactive Protein 37.3 mg/L (0.0-4. 9) H 01/03/21 04:14 NT-Pro-B Natriuret Pep 446 pg/mL (0-125) H 01/03/21 04:14 Total Protein 6.1 g/dL (6.6-8.7 ) L 01/03/21 04:14 Albumin 3.5 g/dL (3.5-5.2 ) 01/03/21 04:14 Globulin 2.6 g/dL (1.3-4.6 ) 01/03/21 04:14 Triglycerides 256 mg/dL (0-150) H 01/01/21 02:45 Cholesterol 148 mg/dL (0-200) 01/01/21 02:45 LDL Cholesterol, C alc 74 mg/dL (50-129) 01/01/21 02:45 Total VLDL Cholest rogers 51 mg/dL (0-30) H 01/01/21 02:45 HDL Cholesterol 23 mg/dL (60-100) L 01/01/21 02:45 Cholesterol/HDL Ra gume 6.43 mg/dL (1.0-5 .00) H 01/01/21 02:45 Procalcitonin 0.36 ng/mL (0-0.5 ) 01/02/21 10:00 TSH 0.68 uIU/mL (0.27 -4.20) 12/31/20 13:14 Urine Color Yellow (Yellow) 12/31/20 03:36 Urine Appearance Clear (CLEAR) 12/31/20 03:36 Urine pH 5 (5-7) 12/31/20 03:36 Ur Specific Gravit y 1.030 (1.005-1.0 30) 12/31/20 03:36 Urine Protein Trace (Negative) 12/31/20 03:36 Urine Glucose (UA) Norm (Normal) 12/31/20 03:36 Urine Ketones Negative (Negati ve) 12/31/20 03:36 Urine Blood Neg (Negative) 12/31/20 03:36 Urine Nitrate Negative (Negati ve) 12/31/20 03:36 Urine Bilirubin 1+ (Negative) H 12/31/20 03:36 Urine Urobilinogen Norm mg/dL (Negat huma) 12/31/20 03:36 Ur Leukocyte Rosa ase Negative (Negati ve) 12/31/20 03:36 Urine RBC 0-4 /hpf (0-2) H 12/31/20 03:36 Urine WBC 0-4 /hpf (0-5) H 12/31/20 03:36 Ur Squamous Epith Cells 0-4 /hpf (0-5) H 12/31/20 03:36 Amorphous Sediment 2+ /hpf 12/31/20 03:36 Urine Bacteria Trace /hpf (NONE) 12/31/20 03:36 Hyaline Casts 0-4 /lpf H 12/31/20 03:36 Ur Random Sodium 21 mmol/L 12/31/20 03:36 Ur Random Potassiu m 32 mmol/L 12/31/20 03:36 Ur Random Chloride 16 mmol/L 12/31/20 03:36 Urine Creatinine 376 mg/dL (39-259 ) H 12/31/20 03:36 Serum Ketones Negative (Negati ve) 12/31/20 02:26 Hepatitis A IgM Ab Non-reactive (No nreactive) 12/31/20 02:26 Hep Bs Antigen Non-reactive (No nreactive) 12/31/20 02:26 Hep Bs Antibody 3.5 (11.5-1000) L 12/31/20 02:26 Hep B Core Total A b Non-reactive (No nreactive) 12/31/20 02:26 Hepatitis C Antibo dy Non-reactive (No nreactive) 12/31/20 02:26 HIV 1&2 Ab & HIV 1 Ag Non-reactive (No n-Reactiv) 12/31/20 02:26 HIV 1&2 Antibody Non-reactive (No n-Reactiv) 12/31/20 02:26 Impressions Abdomen/Pelvis CT 12/31/20 04:15 IMPRESSION: 1. Increased right abdominal colonic fluid consistent with any diarrheal illness, if present. Clinical correlation is recommended. 2. Moderate urinary bladder wall thickening. Cystitis not excluded. Clinical correlation with urinalysis is recommended. 3. Fatty infiltration of the liver. 4. Peripheral rounded pulmonary ground-glass opacities with intralobular interstitial densities. Pneumonitis, including viral pneumonitis, is difficult to exclude. Clinical correlation is recommended. 5. Coronary atherosclerosis. Radiation Dose CTDIVOL = (mGy): DLP = 1601.75 (mGy-cm) Head CT 01/01/21 18:53 IMPRESSION: 1. No acute abnormality of the brain. 2. Small lacunar infarcts versus prominent perivascular spaces in the right and left basal ganglia are stable. Radiation Dose CTDIVOL = (mGy): DLP = 893.93 (mGy-cm) Lower limb arterial duplex CONCLUSIONS 1. Abnormal resting GURDEEP on the right side of 0.6, suggestive of moderate peripheral arterial disease. Abnormal Doppler waveform in the posterior tibial artery, may suggest collateral filling. No Doppler signals in the dorsalis pedis artery, suggestive of total occlusion. 2. No significant arterial obstruction on the left side Renal ultrasound with Doppler FINDINGS Normal kidney dimensions bilaterally. Normal renal arterial Doppler flow velocities. Normal Doppler velocity ratios and indicis. CONCLUSIONS #1. No evidence of any significant renal artery stenosis, based on the above findings. #2. Normal kidney dimensions Dr Meghana Lin MD [facility] (Electronically Signed) Final Date: 01 January 2021 10:47 Microbiology 01/02/21 10:00 Blood Blood Culture - Preliminary Gram positive cocci 01/02/21 09:50 Blood Blood Culture - Preliminary SPECIMEN COLLECTED 12/31/20 18:50 Sputum - Expectorated Sputum Gram Stain - Final 12/31/20 18:50 Sputum - Expectorated Sputum Sputum Culture - Preliminary 12/31/20 14:52 Nose MRSA Culture - Final 12/31/20 02:26 Blood Blood Culture - Preliminary NEGATIVE TO DATE 12/31/20 02:24 Blood Blood Culture - Preliminary NEGATIVE TO DATE 12/31/20 03:36 Urine Kidney Bacterial Antigens - Final 12/31/20 03:36 Urine Catheterized Legionella Urinary Antigen - Final Vitals: Last Vital Signs Temp 97.9 F 01/03/21 07:23 Pulse 88 01/03/21 07:57 Resp 16 01/03/21 07:57 BP 116/68 01/03/21 07:23 Pulse Ox 95 01/03/21 07:57 Discharge Plan Discharge Patient Disposition: Home Condition: Stable Prescriptions: New gabapentin 100 mg Capsule 200 mg PO TID 30 Days Qty: 180 RF: 0 Vitamin C 500 mg tablet 500 mg PO DAILY Qty: 14 RF: 0 benzonatate 100 mg Capsule 100 mg PO TID PRN (Reason: cough) Qty: 10 RF: 0 Advair Diskus 250-50 mcg/dose Blister With Device 1 puff inhalation BID.RESPIRATORY 14 Days Qty: 28 RF: 0 zinc gluconate 50 mg Tablet 50 mg PO DAILY Qty: 14 RF: 0 Spiriva with HandiHaler 18 mcg Capsule, W/Inhalation Device 18 mcg inhalation DAILY.RESPIRATORY 14 Days Qty: 14 RF: 0 Xarelto 10 mg Tablet 15 mg PO DAILY Qty: 30 RF: 0 sodium bicarbonate 650 mg tablet 650 mg PO DAILY Qty: 14 RF: 0 dexamethasone 6 mg tablet 6 mg PO DAILY Qty: 7 RF: 0 Continued cyclobenzaprine 10 mg Tablet 10 mg PO TID RF: 0 hydrocodone-acetaminophen 10-325 mg tablet 1 tab PO BID RF: 0 levothyroxine 75 mcg tablet 75 mcg PO DAILY RF: 0 famotidine 20 mg Tablet 20 mg PO BEDTIME RF: 0 glimepiride 4 mg tablet 4 mg PO DAILY RF: 0 Singulair 10 mg tablet 10 mg PO BEDTIME RF: 0 Zetia 10 mg tablet 10 mg PO DAILY RF: 0 Novolog Flexpen U-100 Insulin 100 unit/mL (3 mL) insulin pen See Rx Instructions .ROUTE .COMPLEX RF: 0 fenofibrate 160 mg tablet 160 mg PO DAILY RF: 0 sildenafil (pulm.hypertension) 20 mg Tablet 20 mg PO PRN RF: 0 aspirin 81 mg Tablet,Delayed Release (Dr/Ec) 81 mg PO DAILY RF: 0 Changed omeprazole 40 mg Capsule,Delayed Release(Dr/Ec) 40 mg PO BID Qty: 0 RF: 0 trazodone 150 mg Tablet 150 mg PO BEDTIME Qty: 0 RF: 0 Lantus Solostar U-100 Insulin 100 unit/mL (3 mL) insulin pen 20 unit SUBCUT BID Qty: 0 RF: 0 Held lisinopril 10 mg tablet 10 mg PO DAILY RF: 0 Hold Instructions: Resume on 01/11/21. Discontinued gabapentin 800 mg Tablet 800 mg PO TID RF: 0 metformin 1,000 mg tablet 1,000 mg PO BID RF: 0 Discharge Orders: Discharge Order (Routine); Ordered 01/03/21 Ordered By: Mahamed Ruiz Referrals: Néstor Ocampo FNP [Primary Care Provider] - 1-3 days (TARA Feliz at [facility] sees patients as a walk-in basis only and they don't make appointents for him. Please be sure to go in and be seen by him in 1 to 3 days fro a hospital followup. Thank you) Discharge Diet: Cardiac and Diabetic Discharge Activity: Resume usual activity Patient Instructions: Benzonatate (By mouth), Ascorbic Acid (Vitamin C) (By mouth), Gabapentin (By mouth), Fluticasone/Salmeterol (By breathing), Tiotropium (By breathing), Zinc Supplement (By mouth), Sodium Bicarbonate (By mouth), Rivaroxaban (By mouth), Opioid Safety Activity Restrictions/Additional Instructions: Please take at least 3 L of fluid including Gatorade every day. Please monitor urine output. Please hold off on taking lisinopril for next 2 weeks. Please check blood pressure and maintain a blood pressure diary. Follow-up with a primary care provider with a blood pressure diary for further management of antihypertensives. Please follow-up today primary care provider in 1 to 3 days for repeat BMP. You will be on dexamethasone which is a steroid for next 10 days. You will be on Advair and Spiriva which is in relation treatment for next 2 weeks. Please do not take Metformin anymore. Your dose of Lantus has been increased to 20 units twice daily. Decrease dose of gabapentin to 200 3 times daily. Please take Xarelto every day. You can take your medications from [facility] for cheaper denney. Specially NovoLog and Xarelto. Discharge Attestations Time Spent in Discharge Care*: greater than 30 min Specific Discharge Activities: educating patient, discussing with pcp/other providers, discussing with supportive employment case manager/social workers/dc planners, docum enting/other paperwork and evaluating patient/reviewing data Status at Discharge: Cognitive status at discharge: cognitively intact , Behavioral status at discharge: cooperative , Functional status at discharge: independent ambulation Overall status at discharge: patient is back to baseline Quality Metrics Clinical Quality Measures During this hospital stay, did patient experience: None Coding Level of Care Code Acute Chg FW DC note Diagnoses Pneumonia due to COVID-19 virus U07.1; J12.82 SOL (acute kidney injury) N17.9 Insulin dependent diabetes mellitus High anion gap metabolic acidosis E87.2 Hypertension I10 Hypertension type: essential hypertension Peripheral artery disease I73.9 Hyperlipidemia E78.5 Hyperlipidemia type: unspecified Hyperkalemia E87.5
[2021-01-03 11:59] LABS: Glucose Point of Care 181 mg/dL (70-110)
--- NOTE | 2021-01-03 12:23 | PC.SOCIAL ---
Pg 2 IMM Explained to pt Pg 2 IMM. No questions voiced. Provided pt a copy. Initialed, dated, & timed a copy & placed in chart.
== END 2021-01-03 13:20 | disposition home or self-care (01) | DRG 177 ==
LOC: ER 12-31 01:22 → CSU 12-31 03:47 → ICU 12-31 18:44 → CSU 01-02 02:12
PROVIDERS: Emergency Medicine; Internal Medicine; Admitting Provider Student in an Organized Health Care Education/Training Program; Emergency Provider Nurse Practitioner Family; PCP Nurse Practitioner Family; Visit Provider Student in an Organized Health Care Education/Training Program
DX: U07.1 COVID-19 (principal); J12.82 Pneumonia due to coronavirus disease 2019; N17.9 Acute kidney failure, unspecified; E87.2 Acidosis; E11.42 Type 2 diabetes mellitus with diabetic polyneuropathy; E11.51 Type 2 diabetes mellitus with diabetic peripheral angiopathy without gangrene; Z95.820 Peripheral vascular angioplasty status with implants and grafts; E87.5 Hyperkalemia; E78.5 Hyperlipidemia, unspecified; I10 Essential (primary) hypertension; Z79.4 Long term (current) use of insulin; T38.3X6A Underdosing of insulin and oral hypoglycemic [antidiabetic] drugs, initial encounter; Z91.120 Patient's intentional underdosing of medication regimen due to financial hardship; Z79.891 Long term (current) use of opiate analgesic; Z79.82 Long term (current) use of aspirin
CPT/HCPCS: 36415; 36416; 36600; 51702; 70450; 71045; 74176; 80048; 80051; 80053; 80061; 81001; 82009; 82330; 82436; 82550; 82570; 82728; 82803; 82805; 82962; 83036; 83540; 83550; 83605; 83615; 83735; 83880; 84133; 84145; 84300; 84443; 84484; 85025; 85378; 85384; 85610; 85651; 85730; 86140; 86403; 86705; 86706; 86709; 86803; 87040; 87070; 87205; 87340; 87449; 87641; 87806; 93925; 93975; 94640; 94664; 96365; 96372; 96375; 99285; J0610; J0696; J1100; J1644; J1650; J1815 ×2; J3535; J7030; Q3014